=== PATIENT | male | born 1945 | race African-American/Black ===

== ENCOUNTER 2017-10-10 05:35 | Inpatient (IN) | payer OTHER, MEDICARE ==
[2017-10-10] VITALS (34 sets, daily range): BP systolic 140–208; BP diastolic 66–123; PULSE 72–106; RESP 14–31; TEMP 97.3–99.1; O2SAT 91–100
[~2017-10-10] VITALS: Ht 175.3 cm; Wt 89.9 kg
[~2017-10-10 05:35] MED LIST: ASPI-183 PO; FURO1TAB60 PO; LEVA500T PO; LIPI80TA PO; METO50TA PO; PENT400T PO; RANI150C PO; TYLE325T PO; [UNRECOGNIZED DRUG - CODE] SQ
[2017-10-10] MEDS ORDERED: methylPREDNISolone SOD SUCC 125 MG/2 ML VIAL IV PUSH ONE (05:45)
[2017-10-10] MEDS ORDERED: SODIUM CHLORIDE 0.9% FLUSH 10 ML FLUSH IVF PRN (05:45)
[2017-10-10] MEDS ORDERED: NITROGLYCERIN-D5W 50 MG/250 ML 250 ML IV ONE (05:45)
[2017-10-10] MEDS: RESP: ALBUTEROL 2.5 MG/IPRATROPIUM 0.5 MG NEB (SCH) INH ×2 (05:55→05:56)
--- NOTE | 2017-10-10 05:58 | PD ---
HPI Chief Complaint: Respiratory Distress Time Seen by Provider: 05:39 Travel History International Travel<30 days: No Contact w/Intl Traveler<30days: No History of Present Illness HPI This is a 71-year-old male who has a history of congestive heart failure and cigarette smoking who presents to the emergency Department with trouble breathing that started yesterday morning and has worsened throughout the past 2 days, constant, severe. He provides limited history because of his respiratory distress. He denies any chest pain. PFSH Past Medical History Hx Anticoagulant Therapy: Yes (ASA) Arthritis: Yes (RHEUMATOID ARTHRITIS: RIGHT SIDE, RIGHT HAND) Asthma: No Autoimmune Disease: No Blood Disorders: No Anxiety: Yes Depression: Yes Heart Rhythm Problems: No Cancer: No Cardiac Catheterization: Yes (MULTIPLE CATHS WITH 8 STENTS) Cardiovascular Problems: Yes (HTN) High Cholesterol: Yes Chemotherapy: No Chest Pain: Yes Congestive Heart Failure: Yes COPD: No Coronary Artery Disease: Yes Diabetes: Yes Diminished Hearing: No Endocrine: Yes (DIABETES) Gastrointestinal Disorders: Yes GERD: Yes Genitourinary: Yes Hiatal Hernia: No Hypertension: Yes Immune Disorder: No Kidney Stones: No Musculoskeletal: Yes Neurologic: Yes Psychiatric: No Reproductive: No Migraines: No Myocardial Infarction: Yes Radiation Therapy: No Renal Failure: No Seizures: No Sleep Apnea: No Thyroid Disease: No Ulcer: No PNEUMOCCOCAL Vaccine (Year): 2010 Past Surgical History Abdominal Surgery: No AICD: No Arteriovenous Shunt: No Cardiac Surgery: Yes (STENT, BYPASS 1999) Coronary Artery Bypass Graft: Yes (triple bypass) Coronary Stent: Yes (X8) Ear Surgery: No Endocrine Surgery: No Eye Surgery: No Genitourinary Surgery: No Gynecologic Surgery: No Insulin Pump: No Joint Replacement: No Oral Surgery: No Pacemaker: No Thoracic Surgery: No Other Surgery: Yes (STENTS, BYPASS, 2006 L BKA) Social History Alcohol Use: No Tobacco Use: Yes (1 1/2 PACKS PER 2 DAYS) Substance Use: No Allergies-Medications (Allergen,Severity, Reaction): Coded Allergies: penicillin G (Unverified Allergy, Mild, ITCHING, 10/10/17) acetaminophen (Unverified Adverse Reaction, Severe, "MAKES ME GO CRAZY", 10/10/17) fluoxetine (Unverified Adverse Reaction, Severe, "MAKES ME GO CRAZY", ) hydrocodone (Unverified Adverse Reaction, Severe, "MAKES ME GO CRAZY", ) Reported Meds & Prescriptions Reported Meds & Active Scripts Active Reported Novolog Mix 70-30 Inj (Insulin Aspart Prota 70%/Aspart 30%) 1,000 Unit/10 Ml Vial 80 Units SQ AC DINNER Novolog Mix 70-30 Inj (Insulin Aspart Prota 70%/Aspart 30%) 1,000 Unit/10 Ml Vial 50 Units SQ NOON Novolog Mix 70-30 Inj (Insulin Aspart Prota 70%/Aspart 30%) 1,000 Unit/10 Ml Vial 80 Units SQ AC BREAKFAST Hydralazine HCl 25 Mg Tablet 25 Mg PO TID Carvedilol 25 Mg Tab 25 Mg PO BID Pentoxifylline ER (Pentoxifylline) 400 Mg Tab 400 Mg PO TID Tylenol (Acetaminophen) 325 Mg Tab 650 Mg PO Q6H PRN Lipitor (Atorvastatin Calcium) 80 Mg Tab 80 Mg PO HS Aspirin 325 Mg Tab 325 Mg PO DAILY Lasix (Furosemide) 40 Mg Tab 40 Mg PO BID Ranitidine (Ranitidine HCl) 150 Mg Cap 150 Mg PO BID Review of Systems ROS Limitations: Clinical Condition Physical Exam Narrative GENERAL: Moderate respiratory distress SKIN: Focused skin assessment warm and dry. HEAD: Atraumatic. Normocephalic. EYES: Pupils equal and round. No injection or drainage. ENT: Moist mucous membranes NECK: Trachea midline. CARDIOVASCULAR: Tachycardic. No murmur appreciated. No edema. RESPIRATORY: Diffuse wheezing in the upper [place], poor air movement, apnea and accessory muscle use, speaking 1-2 word sentences GASTROINTESTINAL: Abdomen soft, non-tender, nondistended. MUSCULOSKELETAL: Left lower leg prosthesis. NEUROLOGICAL: Awake and alert. No obvious cranial nerve deficits. Moving all extremities. PSYCHIATRIC: Appropriate mood and affect; insight and judgment normal. Data Data Last Documented VS Vital Signs Date Time Temp Pulse Resp B/P (MAP) Pulse Ox O2 Delivery O2 Flow Rate FiO2 10/10/17 06:44 97.3 82 18 146/93 (110) 99 BiPAP 30 Orders Orders Complete Blood Count With Diff (10/10/17 05:40) Comprehensive Metabolic Panel (10/10/17 05:40) B-Type Natriuretic Peptide (10/10/17 05:40) Troponin I (10/10/17 05:40) Iv Access Insert/Monitor (10/10/17 05:40) Ecg Monitoring (10/10/17 05:40) Oximetry (10/10/17 05:40) Oxygen Administration (10/10/17 05:40) Chest, Single Ap (10/10/17 05:40) Sodium Chloride 0.9% Flush (Ns Flush) (10/10/17 05:45) Prothrombin Time / Inr (Pt) (10/10/17 05:40) Act Partial Throm Time (Ptt) (10/10/17 05:40) Nitroglycerin-D5w 50 Mg/250 Ml (Nitrogly (10/10/17 05:45) Methylprednisolone So Succ Inj (Solumedr (10/10/17 05:45) Albuterol-Ipratropium Neb (Duoneb Neb) (10/10/17 05:45) Aspirin Chew (Aspirin Chew) (10/10/17 06:00) Resp Bipap / Cpap Non Invas Vt (10/10/17 ) Furosemide Inj (Lasix Inj) (10/10/17 07:00) Arterial Blood Gas (Abg) (10/10/17 ) Labs Laboratory Tests Test 10/10/17 05:55 White Blood Count 7.0 TH/MM3 Red Blood Count 4.89 MIL/MM3 Hemoglobin 14.0 GM/DL Hematocrit 44.1 % Mean Corpuscular Volume 90.2 FL Mean Corpuscular Hemoglobin 28.6 PG Mean Corpuscular Hemoglobin Concent 31.7 % Red Cell Distribution Width 14.5 % Platelet Count 105 TH/MM3 Mean Platelet Volume 9.4 FL Neutrophils (%) (Auto) 62.1 % Lymphocytes (%) (Auto) 27.7 % Monocytes (%) (Auto) 8.0 % Eosinophils (%) (Auto) 1.5 % Basophils (%) (Auto) 0.7 % Neutrophils # (Auto) 4.3 TH/MM3 Lymphocytes # (Auto) 2.0 TH/MM3 Monocytes # (Auto) 0.6 TH/MM3 Eosinophils # (Auto) 0.1 TH/MM3 Basophils # (Auto) 0.0 TH/MM3 CBC Comment DIFF FINAL Differential Comment Prothrombin Time 12.0 SEC Prothromb Time International Ratio 1.2 RATIO Activated Partial Thromboplast Time 24.3 SEC Blood Urea Nitrogen 23 MG/DL Creatinine 1.80 MG/DL Random Glucose 216 MG/DL Total Protein 7.8 GM/DL Albumin 3.7 GM/DL Calcium Level 9.0 MG/DL Alkaline Phosphatase 108 U/L Aspartate Amino Transf (AST/SGOT) 28 U/L Alanine Aminotransferase (ALT/SGPT) 35 U/L Total Bilirubin 0.8 MG/DL Sodium Level 141 MEQ/L Potassium Level 4.2 MEQ/L Chloride Level 105 MEQ/L Carbon Dioxide Level 31.8 MEQ/L Anion Gap 4 MEQ/L Estimat Glomerular Filtration Rate 45 ML/MIN Troponin I 0.04 NG/ML [facility] Medical Decision Making Medical Screen Exam Complete: Yes Emergency Medical Condition: Yes Medical Record Reviewed: Yes (patient has a history of congestive heart failure and COPD) Interpretation(s) Afebrile, no tachycardia, hypertensive No leukocytosis Renal insufficiency similar to prior Troponin is 0.04 Chest x-ray: Mild congestive heart failure Differential Diagnosis Congestive heart failure, hypertensive emergency, COPD exacerbation, pneumonia, pulmonary embolism Narrative Course This is a 71-year-old male who presents to the emergency department with shortness of breath that started yesterday but has acutely worsened overnight. He has a history congestive heart failure and COPD per his . On arrival he was speaking 1-2 word sentences, diaphoretic, using accessory muscles and had an oxygen saturation of 88% on room air. Patient was placed on BiPAP and a nitroglycerin infusion was initiated in the setting of marked hypertension. He was also given IV steroids and serial bronchodilators. Patient improved significantly and became more comfortable. Labs are reassuring. Chest x-ray demonstrates congestive heart failure. Patient will be admitted in the setting of hypertensive emergency and CHF exacerbation Critical Care Narrative Aggregate critical care time was 45 minutes. Time to perform other separately billable procedures was not included in the critical care time. My time did not include minutes spent treating any other patients simultaneously or on activities that did not directly contribute to the patient's treatment. The services I provided to this patient were to treat and/or prevent clinically significant deterioration that could result in: disability, I provided critical care services requiring my management, as noted below: Chart data review, documentation time, medication orders and management, vital sign assessments/reviewing monitor data, ordering and reviewing lab tests, ordering and interpreting/reviewing x-rays and diagnostic studies, care of the patient and discussion of the patient with the admitting physicians. Diagnosis Primary Impression: Hypertensive emergency Additional Impression: Congestive heart failure Qualified Codes: I50.9 - Heart failure, unspecified Admitting Information Admitting Physician Requests: it Darline Nicole MD Oct 10, 2017 05:58
[2017-10-10] MEDS ORDERED: ASPIRIN 81 MG CHEW TAB CHEW ONE (06:00)
[2017-10-10 06:15] LABS: AUTOMATED NEUTROPHIL # 4.3 TH/MM3 (1.8-7.7); BASOPHIL % 0.7 % (0.0-2.0); EOSINOPHIL # 0.1 TH/MM3 (0-0.4); EOSINOPHIL % 1.5 % (0.0-4.0); HEMATOCRIT 44.1 % (39.0-51.0); LYMPH % 27.7 % (9.0-44.0); MEAN CELL VOLUME 90.2 FL (80.0-100.0); MEAN CORPUSCULAR HEMOGLOBIN 28.6 PG (27.0-34.0); MEAN CORPUSCULAR HGB CONC 31.7 % (32.0-36.0); MEAN PLATELET VOLUME 9.4 FL (7.0-11.0); MONOCYTE # 0.6 TH/MM3 (0-0.9); NEUT % 62.1 % (16.0-70.0); PLATELET COUNT 105 TH/MM3 (150-450); RED BLOOD COUNT 4.89 MIL/MM3 (4.50-5.90); RED CELL DISTRIBUTION WIDTH 14.5 % (11.6-17.2)
[2017-10-10 06:29] LABS: CHLORIDE 105 MEQ/L (98-107); SODIUM (NA) 141 MEQ/L (136-145)
[2017-10-10 06:32] LABS: ALBUMIN 3.7 GM/DL (3.4-5.0); BICARBONATE 31.8 MEQ/L (21.0-32.0); BLOOD UREA NITROGEN 23 MG/DL (7-18); GLUCOSE,RANDOM 216 MG/DL (74-106); INTERNATIONAL NORMALIZED RATIO 1.2 RATIO
[2017-10-10] MEDS ORDERED: HYDR-3799 PO (06:33)
[2017-10-10] MEDS ORDERED: CARV25TA PO (06:33)
[2017-10-10 06:35] LABS: ALT (GPT) 35 U/L (12-78)
[2017-10-10 06:36] LABS: AST (GOT) 28 U/L (15-37); GLOMERULAR FILTRATION RATE 45 ML/MIN (>89)
[2017-10-10 06:37] LABS: TOTAL BILIRUBIN ADULT 0.8 MG/DL (0.2-1.0); TOTAL PROTEIN 7.8 GM/DL (6.4-8.2)
[2017-10-10 06:38] LABS: ALKALINE PHOSPHATASE 108 U/L (45-117)
[2017-10-10] MEDS ORDERED: NOVOLOGMXP SQ ×4 (06:38)
[2017-10-10 06:40] LABS: TROPONIN I 0.04 NG/ML (0.02-0.05)
--- NOTE | 2017-10-10 06:48 | RADRPT ---
EXAM DATE/TIME: 10/10/2017 06:29 [place] COMPARISON: CHEST SINGLE AP, August 29, 2016, 15:14. INDICATIONS : Shortness of breath. MEDICAL HISTORY : Hypertension. Hypercholesterolemia. Diabetes mellitus type II. COPD. Congestive Heart Failure. Gastro esophageal reflux disease. SURGICAL HISTORY : CABG. Cardiac catheterization with stent placement. ENCOUNTER: Initial ACUITY: 1 day PAIN SCORE: 4/10 LOCATION: Bilateral chest FINDINGS: There is slight cardiomegaly and perivascular pulmonary edema. Focal consolidation is not seen. There is evidence for prior median sternotomy. left subclavian pacer wire has not changed. CONCLUSION: Slight CHF. Ziggy Kaye MD on October 10, 2017 at 6:47 Board Certified Radiologist. This report was verified electronically.
[2017-10-10] MEDS ORDERED: FUROSEMIDE 40 MG/4 ML VIAL IV PUSH ONE (07:00)
[2017-10-10] MEDS ORDERED: GLUCAGON 1 MG/ML VIAL OTHER PRN (08:15)
[2017-10-10] MEDS ORDERED: SENNOSIDES 8.6 MG TAB PO PRN (08:15)
[2017-10-10] MEDS ORDERED: DEXTROSE 50% IN WATER 50 ML VIAL(D50) IV PUSH PRN (08:15)
[2017-10-10] MEDS ORDERED: NALOXONE HCL 0.4 MG/ML AMP IV PUSH PRN ×2 (08:15→19:30)
[2017-10-10] MEDS ORDERED: ONDANSETRON HCL 4 MG/2 ML VIAL IVP PRN (08:15)
[2017-10-10] MEDS ORDERED: LACTULOSE SYRUP 20 GM/30 ML CUP PO PRN (08:15)
[2017-10-10] MEDS ORDERED: TEMAZEPAM 15 MG CAP PO PRN (08:15)
[2017-10-10] MEDS ORDERED: MAGNESIUM HYDROXIDE SUSP 30 ML CUP PO PRN (08:15)
[2017-10-10] MEDS ORDERED: BISACODYL 10 MG SUPP RECTAL PRN (08:15)
[2017-10-10] MEDS ORDERED: RESP: ALBUTEROL 2.5 MG/IPRATROPIUM 0.5 MG NEB (PRN) NEB (08:15)
[2017-10-10] MEDS ORDERED: SODIUM CHLORIDE 0.9% FLUSH 10 ML FLUSH IV FLUSH PRN (08:15)
[2017-10-10] MEDS ORDERED: ACETAMINOPHEN 325 MG TAB PO PRN (08:15)
[2017-10-10] MEDS ORDERED: CARVEDILOL 12.5 MG TAB PO SCH (09:00)
[2017-10-10] MEDS: ASPIRIN 325 MG TAB PO SCH (10:42)
[2017-10-10] MEDS: DOCUSATE SODIUM 50 MG/SENNA 8.6 MG TAB PO SCH ×2 (10:42→21:52)
[2017-10-10] MEDS: FUROSEMIDE 40 MG/4 ML VIAL IV PUSH SCH ×2 (10:43→17:12)
[2017-10-10] MEDS: ENOXAPARIN SODIUM 40 MG/0.4 ML SYRINGE SQ SCH (10:43)
[2017-10-10] MEDS: hydrALAZINE HCL 25 MG TAB PO SCH ×3 (10:43→17:13)
[2017-10-10] MEDS: SODIUM CHLORIDE 0.9% FLUSH 10 ML FLUSH IV FLUSH SCH ×2 (10:44→21:41)
[2017-10-10] MEDS: FAMOTIDINE 20 MG TAB PO SCH ×2 (10:49→21:52)
[2017-10-10] MEDS ORDERED: PILL SPLITTER OTHER PRN (11:00)
[2017-10-10] MEDS: PENTOXIFYLLINE 400 MG CONTROLLED RELEASE TAB PO SCH ×3 (11:12→17:12)
[2017-10-10] MEDS: INSULIN ASPART SUPPLEMENTAL SCALE SQ SCH ×3 (12:16→21:51)
[2017-10-10] MEDS ORDERED: SODIUM CHLOR 0.9% 1000 ML INJ 1,000 ML IV ONE (13:15)
--- NOTE | 2017-10-10 14:21 | EKG ---
Date Performed: 10/10/2017 Time Performed: 06:35:21 PTAGE: 71 years EKG: Sinus rhythm WITH OCCASIONAL VENTRICULAR PREMATURE COMPLEXES POSSIBLE LEFT ATRIAL ENLARGEMENT INTRAVENTRICULAR CO NDUCTION DELAY ABNORMAL ECG PREVIOUS TRACING : 08/29/2016 11.22 DOCTOR: Alden Milner Interpretating Date/Time 10/10/2017 14:20:13
--- NOTE | 2017-10-10 14:22 | EKG ---
Date Performed: 10/10/2017 Time Performed: 05:41:56 PTAGE: 71 years EKG: SINUS TACHYCARDIA WITH OCCASIONAL VENTRICULAR PREMATURE COMPLEXES POSSIBLE LEFT ATRIAL ENLA RGEMENT INTRAVENTRICULAR CONDUCTION DELAY ABNORMAL ECG INTERPRETATION BASED ON A DEFAULT AGE OF 40 YE ARS NO PREVIOUS TRACING DOCTOR: Alden Milner Interpretating Date/Time 10/10/2017 14:21:34
--- NOTE | 2017-10-10 14:51 | HHI.HP ---
[facility] Service [facility] Primary Care Physician Christofer Hernandez M.D. Admission Diagnosis CHF exacerbation, COPD exacerbation Diagnoses: Chief Complaint: Shortness of breath Travel History International Travel<30 Days: No Contact w/Intl Traveler <30 Da: No Traveled to Known Affected Are: No History of Present Illness Pleasant 71-year-old male with past medical history of coronary artery disease with CABG, hypertension, hyperlipidemia, diabetes with neuropathy and left BKA, systolic CHF, COPD. Patient came to the emergency room for evaluation of shortness of breath, generalized weakness. Says he has CHF and copd but he is not on O2 supplement, says sob worsened x 2 days, symptoms constant, severe. He provides limited history because of his respiratory distress. He denies any chest pain at this time, however he hasd some chest pain /pressure moderate in severity intermittent in the morning after he feed his cats. Says she feels palpitations in his chest but no lighheadedness or sob. No n/v/d/c. Says last drink was yesterday he drinks 2 small bottles of whiskey 2 or 3 times a week. Review of Systems Except as stated in HPI: all other systems reviewed are Neg Past Family Social History Past Medical History Hypertension, hyperlipidemia, diabetes mellitus, left BKA, coronary artery disease with CABG, COPD, CHF Past Surgical History CABG 2000 Defibrillator 2017 Left TKA Bilateral laser eye surgery Reported Medications Last Impressions Chest X-Ray 10/10/17 0590 Signed Impressions: Service Date/Time: Sunday, October 10, 2017 06:29 - CONCLUSION: Slight CHF. K. Rodney Kaye MD Allergies: Coded Allergies: penicillin G (Unverified Allergy, Mild, ITCHING, 10/10/17) acetaminophen (Unverified Adverse Reaction, Severe, "MAKES ME GO CRAZY", 10/10/17) fluoxetine (Unverified Adverse Reaction, Severe, "MAKES ME GO CRAZY", ) hydrocodone (Unverified Adverse Reaction, Severe, "MAKES ME GO CRAZY", 12/ 27/17) Family History Parents and his sister with hypertension, diabetes, hyperlipidemia Social History Quit alcohol use in 1999 Tobacco one pack per day for 60 years, down a month ago 7 cigarettes per day and now 2 cigarettes a day. Denies illicit drug use Physical Exam Vital Signs Vital Signs Date Time Temp Pulse Resp B/P (MAP) Pulse Ox O2 Delivery O2 Flow Rate FiO2 10/10/17 14:00 82 10/10/17 14:00 82 16 141/66 (91) 94 10/10/17 13:30 84 16 144/72 (96) 99 10/10/17 13:00 88 14 140/82 (101) 96 10/10/17 12:30 85 17 143/78 (99) 94 10/10/17 12:00 88 10/10/17 12:00 88 27 163/86 (111) 98 10/10/17 11:38 99 Nasal Cannula 2.00 10/10/17 11:17 84 20 163/80 (107) 96 10/10/17 11:00 102 31 188/88 (121) 10/10/17 11:00 102 10/10/17 10:30 86 20 155/78 (103) 95 10/10/17 10:00 84 10/10/17 10:00 84 22 167/89 (115) 96 10/10/17 09:49 82 167/87 10/10/17 09:00 84 10/10/17 09:00 99.1 84 14 150/83 (105) 10/10/17 08:51 10/10/17 08:29 78 18 156/82 (106) 98 Nasal Cannula 2.00 10/10/17 08:01 98 Nasal Cannula 2.00 10/10/17 07:59 75 18 158/81 (106) 99 Nasal Cannula 2.00 10/10/17 07:44 72 17 164/83 (110) 97 Nasal Cannula 2.00 10/10/17 07:29 76 16 162/81 (108) Nasal Cannula 10/10/17 07:17 98 Nasal Cannula 2.00 10/10/17 07:14 80 16 162/91 (114) 99 Nasal Cannula 2.00 10/10/17 07:11 99 Nasal Cannula 2.00 10/10/17 07:11 BiPAP 10/10/17 06:59 91 16 171/92 (118) 98 BiPAP 30 10/10/17 06:56 100 BiPAP 30 10/10/17 06:44 97.3 82 18 146/93 (110) 99 BiPAP 30 10/10/17 06:35 88 18 170/90 (116) 99 BiPAP 30 10/10/17 06:25 90 160/88 (112) 97 BiPAP 10/10/17 06:18 92 18 157/109 (125) 98 BiPAP 30 10/10/17 06:09 90 18 187/101 (129) 99 BiPAP 30 10/10/17 06:05 87 208/123 10/10/17 05:52 BiPAP 10/10/17 05:45 99 30 10/10/17 05:40 106 24 208/123 (151) 97 10/10/17 05:40 90 Room Air Physical Exam GENERAL: This is a well-nourished, well-developed patient, in no apparent distress. SKIN: No rashes, ecchymoses or lesions. Cool and dry. HEAD: Atraumatic. Normocephalic. No temporal or scalp tenderness. EYES: Pupils equal round and reactive. Extraocular motions intact. No scleral icterus. No injection or drainage. ENT: Nose without bleeding, purulent drainage or septal hematoma. Throat without erythema, tonsillar hypertrophy or exudate. Uvula midline. Airway patent. NECK: Trachea midline. No JVD or lymphadenopathy. Supple, nontender, no meningeal signs. CARDIOVASCULAR: Regular rate and rhythm without murmurs, gallops, or rubs. RESPIRATORY: Decreased breath sounds, bibasilar bibasilar crackles, no wheezing. No respiratory accessory muscle use. GASTROINTESTINAL: Abdomen soft, non-tender, nondistended. No hepato-splenomegaly , or palpable masses. No guarding. MUSCULOSKELETAL: Left BKA Extremities without clubbing, cyanosis, or edema. No joint tenderness, effusion, or edema noted. No calf tenderness. Negative Homans sign right side. NEUROLOGICAL: Awake and alert. Cranial nerves II through XII intact. Motor and sensory grossly within normal limits. Five out of 5 muscle strength in all muscle groups. Normal speech. Laboratory Laboratory Tests Test 10/10/17 05:55 10/10/17 07:07 White Blood Count 7.0 Red Blood Count 4.89 Hemoglobin 14.0 Hematocrit 44.1 Mean Corpuscular Volume 90.2 Mean Corpuscular Hemoglobin 28.6 Mean Corpuscular Hemoglobin Concent 31.7 Red Cell Distribution Width 14.5 Platelet Count 105 Mean Platelet Volume 9.4 Neutrophils (%) (Auto) 62.1 Lymphocytes (%) (Auto) 27.7 Monocytes (%) (Auto) 8.0 Eosinophils (%) (Auto) 1.5 Basophils (%) (Auto) 0.7 Neutrophils # (Auto) 4.3 Lymphocytes # (Auto) 2.0 Monocytes # (Auto) 0.6 Eosinophils # (Auto) 0.1 Basophils # (Auto) 0.0 CBC Comment DIFF FINAL Differential Comment Prothrombin Time 12.0 Prothromb Time International Ratio 1.2 Activated Partial Thromboplast Time 24.3 Blood Urea Nitrogen 23 Creatinine 1.80 Random Glucose 216 Total Protein 7.8 Albumin 3.7 Calcium Level 9.0 Alkaline Phosphatase 108 Aspartate Amino Transf (AST/SGOT) 28 Alanine Aminotransferase (ALT/SGPT) 35 Total Bilirubin 0.8 Sodium Level 141 Potassium Level 4.2 Chloride Level 105 Carbon Dioxide Level 31.8 Anion Gap 4 Estimat Glomerular Filtration Rate 45 Troponin I 0.04 B-Type Natriuretic Peptide 564 Blood Gas Puncture Site RT RADIAL Blood Gas Patient Temperature 98.6 Blood Gas HCO3 27 Blood Gas Base Excess 2.3 Blood Gas Oxygen Saturation 95 Arterial Blood pH 7.40 Arterial Blood Partial Pressure CO2 44 Arterial Blood Partial Pressure O2 101 Arterial Blood Oxygen Content 17.5 Arterial Blood Carboxyhemoglobin 2.8 Arterial Blood Methemoglobin 0.9 Blood Gas Hemoglobin 13.1 Oxygen Delivery Device BIPAP Blood Gas Ventilator Setting IPAP 12/EPAP 5 Blood Gas Inspired Oxygen 30 Result Diagram: 10/10/1755410/10/1755 Imaging Last Impressions Chest X-Ray 10/10/17539 Signed Impressions: Service Date/Time: Tuesday, October 10, 2017 06:29 - CONCLUSION: Slight CHF. K. MD Hernán Ellis VTE Risk Assessment Caprini VTE Risk Assessment: Mod/High Risk (score >= 2) Caprini Risk Assessment Model Point Value = 1 Point Value = 2 Point Value = 3 Point Value = 5 Age 41-60 Minor surgery BMI > 25 kg/m2 Swollen legs Varicose veins or History of unexplained or recurrent spontaneous Oral contraceptives or hormone replacement Sepsis (< 1 month) Serious lung disease, including pneumonia (< 1 month) Abnormal pulmonary function Acute myocardial infarction Congestive heart failure (< 1 month) History of inflammatory bowel disease Medical patient at bed rest Age 61-74 Arthroscopic surgery Major open surgery (> 45 min) Laparoscopic surgery (> 45 min) Malignancy Confined to bed (> 72 hours) Immobilizing plaster cast Central venous access Age >= 75 History of VTE Family history of VTE Factor V Leiden Prothrombin [id number] Lupus anticoagulant Anticardiolipin antibodies Elevated serum homocysteine Heparin-induced thrombocytopenia Other congenital or acquired thrombophilia Stroke (< 1 month) Elective arthroplasty Hip, pelvis, or leg fracture Acute spinal cord injury (< 1 month) Prophylaxis Regimen Total Risk Factor Score Risk Level Prophylaxis Regimen 0-1 Low Early ambulation 2 Moderate Order ONE of the following: *Sequential Compression Device (SCD) *Heparin 5000 units SQ BID 3-4 Higher Order ONE of the following medications: *Heparin 5000 units SQ TID *Enoxaparin/Lovenox 40 mg SQ daily (WT < 150 kg, CrCl > 30 mL/min) *Enoxaparin/Lovenox 30 mg SQ daily (WT < 150 kg, CrCl > 10-29 mL/min) *Enoxaparin/Lovenox 30 mg SQ BID (WT < 150 kg, CrCl > 30 mL/min) AND/OR *Sequential Compression Device (SCD) 5 or more Highest Order ONE of the following medications: *Heparin 5000 units SQ TID (Preferred with Epidurals) *Enoxaparin/Lovenox 40 mg SQ daily (WT < 150 kg, CrCl > 30 mL/min) *Enoxaparin/Lovenox 30 mg SQ daily (WT < 150 kg, CrCl > 10-29 mL/min) *Enoxaparin/Lovenox 30 mg SQ BID (WT < 150 kg, CrCl > 30 mL/min) AND *Sequential Compression Device (SCD) Assessment and Plan Assessment and Plan Pleasant 71-year-old male with past medical history of systolic CHF, coronary artery disease with CABG, hypertension, hyperlipidemia, diabetes with neuropathy and left BKA, COPD with c/o sob: Acute exacerbation of systolic CHF Hypertensive emergency History of coronary artery disease with CABG Start Lasix 40 mg IV twice a day Placed on nitro drip monitor blood pressure and taper as tolerated Continue home medications Chronic medical problems appear stable at this time resume home medications DVT prophylaxis SCD teds, Lovenox Discussed Condition With Patient, nurse, ED physician Physician Certification 2 Midnight Certification Type: Admission for Inpatient Services Order for Inpatient Services The services are ordered in accordance with Medicare regulations or non- Medicare payer requirements, as applicable. In the case of services not specified as inpatient-only, they are appropriately provided as inpatient services in accordance with the 2-midnight benchmark. Estimated LOS (days): 3 days is the estimated time the patient will need to remain in the hospital, assuming treatment plan goals are met and no additional complications. Post-Hospital Plan: Home Mariza Cheung MD Oct 10, 2017 14:51
[2017-10-10] MEDS ORDERED: CHLORHEXIDINE GLUCONATE 2 % 1 PACK (2 CLOTHS)(extra cloths) TOPICAL PRN (15:30)
[2017-10-10] MEDS ORDERED: hydrALAZINE HCL 10 MG TAB PO PRN (18:00)
[2017-10-10] MEDS ORDERED: hydrALAZINE HCL 25 MG TAB PO ONE (18:00)
[2017-10-10] MEDS ORDERED: FUROSEMIDE 40 MG/4 ML VIAL IV PUSH SCH (18:00)
[2017-10-10] MEDS ORDERED: hydrALAZINE HCL 25 MG TAB PO SCH (18:00)
[2017-10-10] MEDS ORDERED: CARVEDILOL 6.25 MG TAB PO ONE (18:00)
[2017-10-10] MEDS ORDERED: ENALAPRILAT 2.5 MG/2 ML VIAL IV PUSH PRN (18:00)
[2017-10-10] MEDS ORDERED: ATORVASTATIN 40 MG TAB PO SCH (21:00)
[2017-10-10] MEDS: CARVEDILOL 12.5 MG TAB PO SCH (21:53)
[2017-10-11] VITALS: BP 165/72; PULSE 79; RESP 16; TEMP 98.5; O2SAT 95
[2017-10-11 04:00] VITALS: BP 142/71; PULSE 75; RESP 16; TEMP 98.6; O2SAT 96
[2017-10-11] MEDS ORDERED: CHLORHEXIDINE GLUCONATE 2 % 1 PACK (2 CLOTHS)(taper/protocol) TOPICAL SCH (04:00)
[2017-10-11 05:37] LABS: AUTOMATED NEUTROPHIL # 10.5 TH/MM3 (1.8-7.7); BASOPHIL # 0.1 TH/MM3 (0-0.2); BASOPHIL % 0.4 % (0.0-2.0); EOSINOPHIL % 0.1 % (0.0-4.0); HEMATOCRIT 39.9 % (39.0-51.0); HEMOGLOBIN 12.9 GM/DL (13.0-17.0); LYMPH % 9.6 % (9.0-44.0); LYMPHOCYTE # 1.2 TH/MM3 (1.0-4.8); MEAN CELL VOLUME 88.8 FL (80.0-100.0); MEAN CORPUSCULAR HEMOGLOBIN 28.8 PG (27.0-34.0); MEAN CORPUSCULAR HGB CONC 32.5 % (32.0-36.0); MEAN PLATELET VOLUME 9.5 FL (7.0-11.0); MONO % 5.7 % (0.0-8.0); MONOCYTE # 0.7 TH/MM3 (0-0.9); NEUT % 84.2 % (16.0-70.0); PLATELET COUNT 96 TH/MM3 (150-450); RED CELL DISTRIBUTION WIDTH 13.9 % (11.6-17.2); WHITE BLOOD COUNT 12.5 TH/MM3 (4.0-11.0)
[2017-10-11 05:56] LABS: CALCIUM 8.8 MG/DL (8.5-10.1)
[2017-10-11 08:00] VITALS: BP 150/80; PULSE 60; RESP 20; TEMP 97.5; O2SAT 97
[2017-10-11] MEDS: ASPIRIN 325 MG TAB PO SCH (08:39)
[2017-10-11] MEDS: ENOXAPARIN SODIUM 40 MG/0.4 ML SYRINGE SQ SCH (08:39)
[2017-10-11] MEDS: CARVEDILOL 12.5 MG TAB PO SCH (08:40)
[2017-10-11] MEDS: FAMOTIDINE 20 MG TAB PO SCH (08:40)
[2017-10-11] MEDS: DOCUSATE SODIUM 50 MG/SENNA 8.6 MG TAB PO SCH (08:40)
[2017-10-11] MEDS: PENTOXIFYLLINE 400 MG CONTROLLED RELEASE TAB PO SCH (08:40)
[2017-10-11] MEDS: SODIUM CHLORIDE 0.9% FLUSH 10 ML FLUSH IV FLUSH SCH (08:41)
--- NOTE | 2017-10-11 08:44 | HHI.DCPOC ---
Discharge Care Plan Goals to Promote Your Health * To prevent worsening of your condition and complications * To maintain your health at the optimal level Directions to Meet Your Goals Take your medications as prescribed Follow your dietary instruction Follow activity as directed Keep your appointments as scheduled Take your immunizations and boosters as scheduled If your symptoms worsen call your PCP, if no PCP go to Urgent Care Center or Emergency Room Smoking is Dangerous to Your Health. Avoid second hand smoke Call the 24-hour hour crisis hotline for domestic abuse at Mariza Cheung MD Oct 11, 2017 08:44
[2017-10-11] MEDS: INSULIN ASPART SUPPLEMENTAL SCALE SQ SCH (08:57)
[2017-10-11] MEDS ORDERED: hydrALAZINE HCL 25 MG TAB PO SCH (09:00)
[2017-10-11] MEDS ORDERED: FUROSEMIDE 40 MG TAB PO SCH (09:00)
--- NOTE | 2017-10-11 12:25 | HHI.FF ---
Face to Face Verification Diagnosis: (1) Acute pancreatitis (2) CHF (congestive heart failure) (3) Non-ischemic cardiomyopathy Home Health Nursing Order: Medical education Signs/symptoms of disease process CHF education Medication education-adverse effect Nursing assessment with vital signs I have seen patient Tawnya Valdes on 10/11/17. My clinical findings support the need for the requested home health care services because: Patient has SOB Med compliance is questionable I certify that my clinical findings support that this patient is homebound because: Hx COPD- exertion dyspnea/weakness Rachael Larsen Oct 11, 2017 12:25
== END 2017-10-11 10:55 | disposition home health service (06) | DRG 304 ==
LOC: PHED 05:35 → INTOOBSV 08:04 → PHEDA 08:04 → OBSVTOIN 08:13 → PHICU 09:00 → PH3B 18:55
PROVIDERS: ADMIT Hospitalist; ATTEND Hospitalist
PROC: 5A09357 Assistance with Respiratory Ventilation, Less than 24 Consecutive Hours, Continuous Positive Airway Pressure (ICD-10-PCS; principal; 2017-10-10)
DX: I16.1 Hypertensive emergency (principal); I11.0 Hypertensive heart disease with heart failure; I50.23 Acute on chronic systolic (congestive) heart failure; E11.40 Type 2 diabetes mellitus with diabetic neuropathy, unspecified; Z79.4 Long term (current) use of insulin; J44.9 Chronic obstructive pulmonary disease, unspecified; I25.10 Atherosclerotic heart disease of native coronary artery without angina pectoris; Z95.1 Presence of aortocoronary bypass graft; I25.2 Old myocardial infarction; E78.5 Hyperlipidemia, unspecified; Z89.512 Acquired absence of left leg below knee; M06.9 Rheumatoid arthritis, unspecified; K21.9 Gastro-esophageal reflux disease without esophagitis; F17.210 Nicotine dependence, cigarettes, uncomplicated; Z79.82 Long term (current) use of aspirin
CPT/HCPCS: 36600; 71010; 80048; 80053; 82805; 82948; 83880; 84484; 85025; 85610; 85730; 87641; 93005; 94002; 94640; 94664; 96365; 96366; 96375; J1650; J1815; J1940; J2930

== ENCOUNTER 2018-02-04 04:28 | Inpatient (IN) | payer OTHER, MEDICARE ==
[2018-02-04] VITALS (29 sets, daily range): BP systolic 156–204; BP diastolic 72–101; PULSE 80–110; RESP 14–38; TEMP 98.2–98.8; O2SAT 82–100
[~2018-02-04] VITALS: Ht 175.3 cm; Wt 91.6 kg
[~2018-02-04 04:28] MED LIST changes: +CARV25TA PO; +HYDR-3799 PO; -LEVA500T PO; -METO50TA PO; +NOVOLOGMXP SQ; -[UNRECOGNIZED DRUG - CODE] SQ
--- NOTE | 2018-02-04 04:39 | PD ---
HPI Chief Complaint: Short of breath Time Seen by Provider: 04:31 Travel History International Travel<30 days: No Contact w/Intl Traveler<30days: No Traveled to known affect area: No History of Present Illness HPI 72-year-old male presents to the emergency department by private transportation from home after waking from sleep with marked shortness of breath. Patient presents markedly diaphoretic and acute severe respiratory distress answering with simple single word answers due to marked shortness of breath. Patient has had previous CABG and reports history of COPD. PFSH Past Medical History Narrative Medical CAD CABG AICD CHF COPD hypertension dyslipidemia diabetes; nursing notes reviewed Hx Anticoagulant Therapy: Yes (ASPIRIN) Arthritis: Yes (RHEUMATOID ARTHRITIS: RIGHT SIDE, RIGHT HAND) Asthma: No Autoimmune Disease: No Blood Disorders: No Anxiety: Yes Depression: No Heart Rhythm Problems: No Cancer: No Cardiac Catheterization: Yes (MULTIPLE CATHS WITH 8 STENTS) Cardiovascular Problems: Yes (HTN, ME,TRIPLE BYPASS, AICD) High Cholesterol: Yes Chemotherapy: No Chest Pain: Yes Congestive Heart Failure: Yes COPD: Yes Coronary Artery Disease: Yes Diabetes: Yes Diminished Hearing: No Endocrine: Yes (DIABETES) Gastrointestinal Disorders: Yes GERD: Yes Genitourinary: No Hiatal Hernia: No Hypertension: Yes Immune Disorder: No Kidney Stones: No Musculoskeletal: Yes (BTK AMPUTATION 2006) Neurologic: No Psychiatric: No Reproductive: No Respiratory: Yes (COPD, EMPHYSEMA) Migraines: No Myocardial Infarction: Yes Radiation Therapy: No Renal Failure: No Seizures: No Sickle Cell Disease: No Sleep Apnea: No Thyroid Disease: No Ulcer: No PNEUMOCCOCAL Vaccine (Year): 2010 Past Surgical History Abdominal Surgery: No AICD: Yes (2015) Arteriovenous Shunt: No Cardiac Surgery: Yes (STENT, BYPASS 1999) Coronary Artery Bypass Graft: Yes (triple bypass) Coronary Stent: Yes (X8) Ear Surgery: No Endocrine Surgery: No Eye Surgery: Yes (LASER, LASIK, BILATERAL) Genitourinary Surgery: No Gynecologic Surgery: No Insulin Pump: No Joint Replacement: No Oral Surgery: No Pacemaker: No Thoracic Surgery: No Other Surgery: Yes (STENTS, BYPASS, 2007 L BKA) Social History Alcohol Use: No Tobacco Use: Yes (1 1/2 PACKS PER 2 DAYS) Substance Use: No Allergies-Medications (Allergen,Severity, Reaction): Coded Allergies: penicillin G (Unverified Allergy, Mild, ITCHING, 10/10/17) acetaminophen (Unverified Adverse Reaction, Severe, "MAKES ME GO CRAZY", 10/10/17) fluoxetine (Unverified Adverse Reaction, Severe, "MAKES ME GO CRAZY", ) hydrocodone (Unverified Adverse Reaction, Severe, "MAKES ME GO CRAZY", ) Reported Meds & Prescriptions Reported Meds & Active Scripts Active Reported Novolog Mix 70-30 Inj (Insulin Aspart Prota 70%/Aspart 30%) 1,000 Unit/10 Ml Vial 80 Units SQ AC DINNER Novolog Mix 70-30 Inj (Insulin Aspart Prota 70%/Aspart 30%) 1,000 Unit/10 Ml Vial 50 Units SQ NOON Novolog Mix 70-30 Inj (Insulin Aspart Prota 70%/Aspart 30%) 1,000 Unit/10 Ml Vial 80 Units SQ AC BREAKFAST Hydralazine HCl 25 Mg Tablet 25 Mg PO TID Carvedilol 25 Mg Tab 25 Mg PO BID Pentoxifylline ER (Pentoxifylline) 400 Mg Tab 400 Mg PO TID Tylenol (Acetaminophen) 325 Mg Tab 650 Mg PO Q6H PRN Lipitor (Atorvastatin Calcium) 80 Mg Tab 80 Mg PO HS Aspirin 325 Mg Tab 325 Mg PO DAILY Lasix (Furosemide) 40 Mg Tab 40 Mg PO BID Ranitidine (Ranitidine HCl) 150 Mg Cap 150 Mg PO BID Review of Systems ROS Limitations: Clinical Condition, Other: (Marked respiratory distress unable to obtain review of systems secondary to respiratory distress) Cardiovascular: No: Chest Pain or Discomfort Respiratory: Positive: Shortness of Breath Physical Exam Narrative GENERAL: Well-developed and nourished adult male in obvious acute respiratory distress markedly diaphoretic tachypneic demonstrating work of breathing with accessory muscle use SKIN: Warm and diaphoretic. HEAD: Normocephalic. EYES: No scleral icterus. No injection or drainage. NECK: Supple, trachea midline. No JVD or lymphadenopathy. CARDIOVASCULAR: Increased regular rate and rhythm without murmurs, gallops, or rubs. RESPIRATORY: Breath sounds equal bilaterally markedly diminished scant crackles at bases and faint expiratory wheezing with accessory muscle use. GASTROINTESTINAL: Abdomen soft, non-tender, nondistended. MUSCULOSKELETAL: No cyanosis, or edema. BACK: Nontender without obvious deformity. No CVA tenderness. Data Data Last Documented VS Vital Signs Date Time Temp Pulse Resp B/P (MAP) Pulse Ox O2 Delivery O2 Flow Rate FiO2 02/04/18 05:48 100 24 188/87 (120) 100 BiPAP 02/04/18 05:10 40 02/04/18 04:43 5.00 Orders Orders Complete Blood Count With Diff (02/04/18 04:31) Basic Metabolic Panel (Bmp) (02/04/18 04:31) B-Type Natriuretic Peptide (02/04/18 04:31) Act Partial Throm Time (Ptt) (02/04/18 04:31) Prothrombin Time / Inr (Pt) (02/04/18 04:31) Magnesium (Mg) (02/04/18 04:31) Ckmb (Isoenzyme) Profile (02/04/18 04:31) Troponin I (02/04/18 04:31) Blood Culture (02/04/18 04:31) Iv Access Insert/Monitor (02/04/18 04:31) Electrocardiogram (02/04/18 04:31) Ecg Monitoring (02/04/18 04:31) Oximetry (02/04/18 04:31) Oxygen Administration (02/04/18 04:31) Chest, Single Ap (02/04/18 04:31) Sodium Chloride 0.9% Flush (Ns Flush) (02/04/18 04:45) Methylprednisolone So Succ Inj (Solumedr (02/04/18 04:45) Albuterol-Ipratropium Neb (Duoneb Neb) (02/04/18 04:45) Resp Bipap / Cpap Non Invas Vt (02/04/18 04:31) Furosemide Inj (Lasix Inj) (02/04/18 04:45) Lactic Acid (02/04/18 04:41) CKMB (02/04/18 04:35) CKMB% (02/04/18 04:35) Place In Observation (02/04/18 ) Vital Signs (Adult) Q4H (02/04/18 05:56) Activity Oob With Assistance (02/04/18 05:56) Ict Sales Representative / Telemetry .CONTINUOUS (02/04/18 05:56) Intake + Output RYAN.QSHIFT (02/04/18 05:56) Diet Heart Healthy (02/04/18 Breakfast) Sodium Chloride 0.9% Flush (Ns Flush) (02/04/18 06:00) Sodium Chloride 0.9% Flush (Ns Flush) (02/04/18 09:00) Comprehensive Metabolic Panel (02/05/18 06:00) Complete Blood Count With Diff (02/05/18 06:00) Naloxone Inj (Narcan Inj) (02/04/18 06:00) Docusate Sodium-Senna (Jenna-Colace) (02/04/18 09:00) Magnesium Hydroxide Liq (Milk Of Magnesi (02/04/18 06:00) Sennosides (Senokot) (02/04/18 06:00) Bisacodyl Supp (Dulcolax Supp) (02/04/18 06:00) Lactulose Liq (Lactulose Liq) (02/04/18 06:00) Intake + Output RYAN.QSHIFT (02/04/18 05:56) ^ Restrictions (02/04/18 05:56) Furosemide Inj (Lasix Inj) (02/04/18 09:00) Albuterol-Ipratropium Neb (Duoneb Neb) (02/04/18 06:00) Nitroglycerin Sl (Nitrostat Sl) (02/04/18 06:00) Creatine Kinase (Cpk) (02/04/18 10:35) Creatine Kinase (Cpk) (02/04/18 16:35) Troponin I (02/04/18 10:35) Troponin I (02/04/18 16:35) Electrocardiogram (02/04/18 10:35) Electrocardiogram (02/04/18 16:35) Admit Order (Ed Use Only) (02/04/18 ) Ict Sales Representative / Telemetry RYAN.Q8H (02/04/18 06:01) Activity Bed Rest (02/04/18 06:01) Notify Dr: Other (02/04/18 06:01) Nitroglycerin 2% Oint (Nitroglycerin 2% (02/04/18 06:15) Labs Laboratory Tests Test 02/04/18 04:35 02/04/18 05:34 White Blood Count 9.4 TH/MM3 Red Blood Count 4.86 MIL/MM3 Hemoglobin 14.3 GM/DL Hematocrit 43.7 % Mean Corpuscular Volume 90.0 FL Mean Corpuscular Hemoglobin 29.4 PG Mean Corpuscular Hemoglobin Concent 32.7 % Red Cell Distribution Width 14.4 % Platelet Count 175 TH/MM3 Mean Platelet Volume 9.0 FL Neutrophils (%) (Auto) 53.6 % Lymphocytes (%) (Auto) 30.5 % Monocytes (%) (Auto) 11.9 % Eosinophils (%) (Auto) 1.2 % Basophils (%) (Auto) 2.8 % Neutrophils # (Auto) 5.0 TH/MM3 Lymphocytes # (Auto) 2.9 TH/MM3 Monocytes # (Auto) 1.1 TH/MM3 Eosinophils # (Auto) 0.1 TH/MM3 Basophils # (Auto) 0.3 TH/MM3 CBC Comment DIFF FINAL Differential Comment Blood Urea Nitrogen 20 MG/DL Creatinine 2.00 MG/DL Random Glucose 309 MG/DL Calcium Level 9.0 MG/DL Magnesium Level 2.1 MG/DL Sodium Level 140 MEQ/L Potassium Level 4.2 MEQ/L Chloride Level 109 MEQ/L Carbon Dioxide Level 23.7 MEQ/L Anion Gap 7 MEQ/L Estimat Glomerular Filtration Rate 40 ML/MIN Total Creatine Kinase 224 U/L Creatine Kinase MB 3.2 NG/ML Troponin I 0.05 NG/ML B-Type Natriuretic Peptide 554 PG/ML Prothrombin Time 11.8 SEC Prothromb Time International Ratio 1.2 RATIO Activated Partial Thromboplast Time 21.2 SEC MDM Medical Decision Making Medical Screen Exam Complete: Yes Emergency Medical Condition: Yes Medical Record Reviewed: Yes Interpretation(s) EKG sinus tachycardia rate 120 intraventricular conduction delay Last Impressions Chest X-Ray 02/04/18 0431 Signed Impressions: Service Date/Time: Sunday, February 04, 2018 04:41 - CONCLUSION: 1. Mild basilar airspace disease, probably mild pulmonary edema with small effusions and cardiomegaly. Edward Rice MD CBC & BMP Diagram 02/04/18 04:35 Calcium Level 9.0, Magnesium Level 2.1 Vital Signs Date Time Temp Pulse Resp B/P (MAP) Pulse Ox O2 Delivery O2 Flow Rate FiO2 02/04/18 05:48 100 24 188/87 (120) 100 BiPAP 02/04/18 05:10 100 BiPAP 40 02/04/18 05:10 100 BiPAP 02/04/18 05:04 82 Room Air 4/23/18 04:50 98 40 02/04/18 04:45 110 38 189/89 (122) 82 02/04/18 04:43 100 Nasal Cannula 5.00 Differential Diagnosis CHF, COPD exacerbation, HTN urgency, ACS, ME Narrative Course Patient placed on merchandising consultant noted to be markedly diaphoretic IV access obtain EKG performed sinus tachycardia with intraventricular conduction delay patient started on DuoNeb [facility] BiPAP ordered Lasix 40 mg IV administered Patient with pulmonary edema by chest x-ray Patient improving clinically no more diaphoresis work of breathing has eased on BiPAP after receiving Lasix Nitropaste 1 inch added to the chest wall for hypertension Lung sounds improved with increasing breath sounds noted on ventilation Troponin I 0.05 upper limit of normal BMP elevated at 550 Patient's case discussed with on-call medicine for admission Critical Care Narrative Aggregate critical care time was 30 minutes. Time to perform other separately billable procedures was not included in the critical care time. My time did not include minutes spent treating any other patients simultaneously or on activities that did not directly contribute to the patient's treatment. The services I provided to this patient were to treat and/or prevent clinically significant deterioration that could result in: Respiratory arrest, arrhythmia, I provided critical care services requiring my management, as noted below: Chart data review, documentation time, medication orders and management, vital sign assessments/reviewing monitor data, ordering and reviewing lab tests, ordering and interpreting/reviewing x-rays and diagnostic studies, care of the patient and discussion of the patient with the admitting physicians. Physician Communication Physician Communication discussed with Khushi Sigala --admit to [facility] step down Diagnosis Primary Impression: CHF (congestive heart failure) Additional Impression: COPD exacerbation Admitting Information Admitting Physician Requests: Admit Nayeli Archuleta MD Feb 04, 2018 04:39
[2018-02-04] MEDS: RESP: ALBUTEROL 2.5 MG/IPRATROPIUM 0.5 MG NEB (SCH) INH ×3 (04:43→05:07)
[2018-02-04] MEDS ORDERED: SODIUM CHLORIDE 0.9% FLUSH 10 ML FLUSH IVF PRN (04:45)
[2018-02-04] MEDS ORDERED: methylPREDNISolone SOD SUCC 125 MG/2 ML VIAL IV PUSH ONE (04:45)
[2018-02-04] MEDS ORDERED: FUROSEMIDE 40 MG/4 ML VIAL IV PUSH ONE (04:45)
[2018-02-04 04:48] LABS: BASOPHIL # 0.3 TH/MM3 (0-0.2); BASOPHIL % 2.8 % (0.0-2.0); EOSINOPHIL # 0.1 TH/MM3 (0-0.4); EOSINOPHIL % 1.2 % (0.0-4.0); HEMATOCRIT 43.7 % (39.0-51.0); HEMOGLOBIN 14.3 GM/DL (13.0-17.0); LYMPH % 30.5 % (9.0-44.0); LYMPHOCYTE # 2.9 TH/MM3 (1.0-4.8); MEAN CORPUSCULAR HEMOGLOBIN 29.4 PG (27.0-34.0); MEAN CORPUSCULAR HGB CONC 32.7 % (32.0-36.0); MONO % 11.9 % (0.0-8.0); MONOCYTE # 1.1 TH/MM3 (0-0.9); NEUT % 53.6 % (16.0-70.0); PLATELET COUNT 175 TH/MM3 (150-450); RED BLOOD COUNT 4.86 MIL/MM3 (4.50-5.90); RED CELL DISTRIBUTION WIDTH 14.4 % (11.6-17.2); WHITE BLOOD COUNT 9.4 TH/MM3 (4.0-11.0)
[2018-02-04 04:57] LABS: CHLORIDE 109 MEQ/L (98-107); SODIUM (NA) 140 MEQ/L (136-145)
[2018-02-04 05:00] LABS: BICARBONATE 23.7 MEQ/L (21.0-32.0); BLOOD UREA NITROGEN 20 MG/DL (7-18); GLUCOSE,RANDOM 309 MG/DL (74-106); MAGNESIUM 2.1 MG/DL (1.5-2.5)
[2018-02-04 05:03] LABS: GLOMERULAR FILTRATION RATE 40 ML/MIN (>89)
[2018-02-04 05:08] LABS: TROPONIN I 0.05 NG/ML (0.02-0.05)
--- NOTE | 2018-02-04 05:22 | RADRPT ---
EXAM DATE/TIME: 02/04/2018 04:41 [place] COMPARISON: CHEST SINGLE AP, October 10, 2017, 6:29. INDICATIONS : Shortness of breath. MEDICAL HISTORY : Hypertension. Hypercholesterolemia. Diabetes mellitus type II. COPD. Congestive Heart Failure. G astroesophageal reflux disease. SURGICAL HISTORY : CABG. Pacemaker. Cardiac catheterization with stent placement. ENCOUNTER: Initial ACUITY: 1 day PAIN SCORE: 0/10 LOCATION: Bilateral chest FINDINGS: A single view of the chest demonstrates pacer lead overlying right ventricle. Postop CABG. Cardiomega ly. Mild basilar airspace disease. No pneumothorax. Small pleural effusions. CONCLUSION: 1. Mild basilar airspace disease, probably mild pulmonary edema with small effusions and cardiomegaly . Edward Rice MD on February 04, 2018 at 5:19 Board Certified Radiologist. This report was verified electronically.
[2018-02-04] MEDS ORDERED: SODIUM CHLORIDE 0.9% FLUSH 10 ML FLUSH IV FLUSH PRN (06:00)
[2018-02-04] MEDS ORDERED: BISACODYL 10 MG SUPP RECTAL PRN (06:00)
[2018-02-04] MEDS ORDERED: MAGNESIUM HYDROXIDE SUSP 30 ML CUP PO PRN (06:00)
[2018-02-04] MEDS ORDERED: NALOXONE HCL 0.4 MG/ML AMP IV PUSH PRN (06:00)
[2018-02-04] MEDS ORDERED: SENNOSIDES 8.6 MG TAB PO PRN (06:00)
[2018-02-04] MEDS ORDERED: RESP: ALBUTEROL 2.5 MG/IPRATROPIUM 0.5 MG NEB (PRN) NEB ×2 (06:00→10:00)
[2018-02-04] MEDS ORDERED: LACTULOSE SYRUP 20 GM/30 ML CUP PO PRN (06:00)
[2018-02-04] MEDS ORDERED: NITROGLYCERIN 0.4 MG SL 25 TABS/BTL SL PRN (06:00)
[2018-02-04 06:03] LABS: INTERNATIONAL NORMALIZED RATIO 1.2 RATIO; PROTHROMBIN TIME - PATIENT 11.8 SEC (9.8-11.6)
[2018-02-04] MEDS ORDERED: NITROGLYCERIN 2% OINT 1 GM PACKET TOPICAL ONE (06:15)
[2018-02-04] MEDS ORDERED: hydrALAZINE HCL 20 MG/ML VIAL IV ONE (08:45)
[2018-02-04] MEDS: DOCUSATE SODIUM 50 MG/SENNA 8.6 MG TAB PO SCH ×2 (09:00→20:36)
[2018-02-04] MEDS ORDERED: LABETALOL HCL 100 MG/20 ML VIAL IV ONE (09:00)
[2018-02-04] MEDS ORDERED: FUROSEMIDE 40 MG/4 ML VIAL IVP SCH (09:00)
[2018-02-04] MEDS ORDERED: GLUCAGON 1 MG/ML VIAL OTHER PRN (09:15)
[2018-02-04] MEDS ORDERED: DEXTROSE 50% IN WATER 50 ML VIAL(D50) IV PUSH PRN (09:15)
[2018-02-04] MEDS: FUROSEMIDE 40 MG TAB PO SCH ×2 (09:15→20:36)
[2018-02-04] MEDS: SODIUM CHLORIDE 0.9% FLUSH 10 ML FLUSH IV FLUSH SCH ×2 (09:42→20:37)
[2018-02-04] MEDS: ASPIRIN 325 MG TAB PO SCH (09:42)
[2018-02-04] MEDS ORDERED: PILL SPLITTER OTHER PRN (09:45)
[2018-02-04] MEDS: INSULIN ASPART SUPPLEMENTAL SCALE SQ SCH ×3 (10:05→21:06)
[2018-02-04 11:46] LABS: TROPONIN I 0.08 NG/ML (0.02-0.05)
[2018-02-04] MEDS: CARVEDILOL 12.5 MG TAB PO SCH ×2 (12:12→20:35)
[2018-02-04] MEDS: FAMOTIDINE 20 MG TAB PO SCH ×2 (12:16→20:36)
[2018-02-04] MEDS: methylPREDNISolone SOD SUCC 40 MG/1 ML VIAL IV PUSH SCH ×2 (12:58→21:11)
[2018-02-04] MEDS: hydrALAZINE HCL 25 MG TAB PO SCH ×2 (12:59→18:21)
--- NOTE | 2018-02-04 12:59 | HHI.HP ---
[facility] Service [facility] Primary Care Physician Christofer Hernandez M.D. Admission Diagnosis chf; copd exacerbation Diagnoses: Chief Complaint: Shortness of breath Travel History International Travel<30 Days: No Contact w/Intl Traveler <30 Da: No Traveled to Known Affected Are: No History of Present Illness This patient is a 72-year-old gentleman with acute onset of increased shortness of breath and increased work of breathing which awoke him from sleep. He came to the hospital who was markedly hypoxemic with acute respiratory distress and diaphoretic. Patient did have a tachycardia 120 and was hypoxemic in the 80s was placed emergently on BiPAP with acute pulmonary edema. Patient did well with diuresis with blood pressure control however his blood pressure has remained uncontrolled and he has required IV medications for blood pressure. Patient had Nitropaste applied and felt a bit better. His troponins were slightly elevated and the patient is recommended for admission to the intensive care unit due to acute respiratory failure. Review of Systems Constitutional: DENIES: Diaphoretic episodes, Fatigue, Fever, Weight gain, Weight loss, Chills, Dizziness, Change in appetite, Night Sweats Endocrine: DENIES: Heat/cold intolerance, Polydipsia, Polyuria, Polyphagia Eyes: DENIES: Blurred vision, Diplopia, Eye inflammation, Eye pain, Vision loss , Photosensitivity, Double Vision Ears, nose, mouth, throat: DENIES: Tinnitus, Hearing loss, Vertigo, Nasal discharge, Oral lesions, Throat pain, Hoarseness, Ear Pain, Running Nose, Epistaxis, Sinus Pain, Toothache, Odynophagia Respiratory: COMPLAINS OF: Shortness of breath, DENIES: Apneas, Cough, Snoring , Wheezing, Hemoptysis, Sputum production Cardiovascular: COMPLAINS OF: Dyspnea on Exertion, DENIES: Chest pain, Palpitations, Syncope, PND, Lower Extremity Edema, Orthopnea, Claudication Gastrointestinal: DENIES: Abdominal pain, Black stools, Bloody stools, Constipation, Diarrhea, Nausea, Vomiting, Difficulty Swallowing, Anorexia Genitourinary: DENIES: Sexual dysfunction, Urinary frequency, Urinary incontinence, Urgency, Hematuria, Dysuria, Nocturia, Penile Discharge, Testicular Pain, Testicular Swelling Musculoskeletal: DENIES: Joint pain, Muscle aches, Stiffness, Joint Swelling, Back pain, Neck pain Integumentary: DENIES: Abnormal pigmentation, Nail changes, Pruritus, Rash Hematologic/lymphatic: DENIES: Bruising, Lymphadenopathy Immunologic/allergic: DENIES: Eczema, Urticaria Neurologic: DENIES: Abnormal gait, Headache, Localized weakness, Paresthesias, Seizures, Speech Problems, Tremor, Poor Balance Psychiatric: DENIES: Anxiety, Confusion, Mood changes, Depression, Hallucinations, Agitation, Suicidal Ideation, Homicidal Ideation, Delusions Except as stated in HPI: all other systems reviewed are Neg Past Family Social History Past Medical History Diabetes Hypertension COPD Heart failure Past Surgical History Coronary artery bypass Defibrillator Cardiac stents 8 Left BKA Eye surgery Reported Medications Reviewed in the EMR, nothing new Allergies: Coded Allergies: penicillin G (Unverified Allergy, Mild, ITCHING, 10/10/17) acetaminophen (Unverified Adverse Reaction, Severe, "MAKES ME GO CRAZY", 10/10/17) fluoxetine (Unverified Adverse Reaction, Severe, "MAKES ME GO CRAZY", ) hydrocodone (Unverified Adverse Reaction, Severe, "MAKES ME GO CRAZY", ) Active Ordered Medications Reviewed in the EMR Family History Coronary disease and congestive heart failure Social History Patient does still smoke one half packs Alcohol intermittently Lives with his Physical Exam Vital Signs Vital Signs Date Time Temp Pulse Resp B/P (MAP) Pulse Ox O2 Delivery O2 Flow Rate FiO2 02/04/18 10:33 98.8 104 16 188/90 (122) 98 02/04/18 10:16 98.2 96 20 171/80 (110) 98 Nasal Cannula 3.00 02/04/18 09:45 Nasal Cannula 3.00 02/04/18 09:39 98 Nasal Cannula 3.00 02/04/18 09:19 93 20 178/89 (118) 100 BiPAP 02/04/18 09:00 92 22 196/97 (130) 99 BiPAP 02/04/18 08:30 96 204/97 (132) 100 BiPAP 02/04/18 08:00 100 40 02/04/18 07:50 85 20 199/101 (133) 98 BiPAP 02/04/18 07:30 86 18 201/101 (134) 99 40 02/04/18 07:17 88 17 188/99 (128) 100 BiPAP 40 02/04/18 07:13 100 BiPAP 02/04/18 05:48 100 24 188/87 (120) 100 BiPAP 02/04/18 05:10 100 BiPAP 40 02/04/18 05:10 100 BiPAP 02/04/18 05:04 82 Room Air 02/04/18 04:50 98 40 02/04/18 04:45 110 38 189/89 (122) 82 02/04/18 04:43 100 Nasal Cannula 5.00 Physical Exam GENERAL: This is a well-nourished, well-developed patient, on BiPAP SKIN: No rashes, ecchymoses or lesions. Cool and dry. HEAD: Atraumatic. Normocephalic. No temporal or scalp tenderness. EYES: Pupils equal round and reactive. Extraocular motions intact. No scleral icterus. No injection or drainage. ENT: Nose without bleeding, purulent drainage or septal hematoma. Throat without erythema, tonsillar hypertrophy or exudate. Uvula midline. Airway patent. NECK: Trachea midline. No JVD or lymphadenopathy. Supple, nontender, no meningeal signs. CARDIOVASCULAR: Regular rate and rhythm without murmurs, gallops, or rubs. RESPIRATORY: Decreased breath sounds bilaterally GASTROINTESTINAL: Abdomen soft, non-tender, nondistended. No hepato-splenomegaly , or palpable masses. No guarding. MUSCULOSKELETAL: Extremities without clubbing, cyanosis, or edema. No joint tenderness, effusion, or edema noted. No calf tenderness. Negative Homans sign bilaterally. NEUROLOGICAL: Awake and alert. Cranial nerves II through XII intact. Motor and sensory grossly within normal limits. Five out of 5 muscle strength in all muscle groups. Normal speech. Laboratory Laboratory Tests Test 02/04/18 04:35 02/04/18 05:34 02/04/18 11:10 White Blood Count 9.4 Red Blood Count 4.86 Hemoglobin 14.3 Hematocrit 43.7 Mean Corpuscular Volume 90.0 Mean Corpuscular Hemoglobin 29.4 Mean Corpuscular Hemoglobin Concent 32.7 Red Cell Distribution Width 14.4 Platelet Count 175 Mean Platelet Volume 9.0 Neutrophils (%) (Auto) 53.6 Lymphocytes (%) (Auto) 30.5 Monocytes (%) (Auto) 11.9 Eosinophils (%) (Auto) 1.2 Basophils (%) (Auto) 2.8 Neutrophils # (Auto) 5.0 Lymphocytes # (Auto) 2.9 Monocytes # (Auto) 1.1 Eosinophils # (Auto) 0.1 Basophils # (Auto) 0.3 CBC Comment DIFF FINAL Differential Comment Blood Urea Nitrogen 20 Creatinine 2.00 Random Glucose 309 Calcium Level 9.0 Magnesium Level 2.1 Sodium Level 140 Potassium Level 4.2 Chloride Level 109 Carbon Dioxide Level 23.7 Anion Gap 7 Estimat Glomerular Filtration Rate 40 Lactic Acid Level 1.0 Total Creatine Kinase 224 145 Creatine Kinase MB 3.2 Troponin I 0.05 0.08 B-Type Natriuretic Peptide 554 Prothrombin Time 11.8 Prothromb Time International Ratio 1.2 Activated Partial Thromboplast Time 21.2 Date/Time Source Procedure Growth Status 02/04/18 05:34 Blood Peripheral Aerobic Blood Culture Pending Received 02/04/18 05:34 Blood Peripheral Anaerobic Blood Culture Pending Received Result Diagram: 02/04/18 0435 02/04/18 0435 Imaging Last Impressions Chest X-Ray 02/04/18430 Signed Impressions: Service Date/Time: Sunday, February 04, 2018 04:41 - CONCLUSION: 1. Mild basilar airspace disease, probably mild pulmonary edema with small effusions and cardiomegaly. Edward Rice MD Septic Shock Reassessment Septic shock perfusion: reassessment completed Caprini VTE Risk Assessment Caprini VTE Risk Assessment: Mod/High Risk (score >= 2) Caprini Risk Assessment Model Point Value = 1 Point Value = 2 Point Value = 3 Point Value = 5 Age 41-60 Minor surgery BMI > 25 kg/m2 Swollen legs Varicose veins or History of unexplained or recurrent spontaneous Oral contraceptives or hormone replacement Sepsis (< 1 month) Serious lung disease, including pneumonia (< 1 month) Abnormal pulmonary function Acute myocardial infarction Congestive heart failure (< 1 month) History of inflammatory bowel disease Medical patient at bed rest Age 61-74 Arthroscopic surgery Major open surgery (> 45 min) Laparoscopic surgery (> 45 min) Malignancy Confined to bed (> 72 hours) Immobilizing plaster cast Central venous access Age >= 75 History of VTE Family history of VTE Factor V Leiden Prothrombin [id number] Lupus anticoagulant Anticardiolipin antibodies Elevated serum homocysteine Heparin-induced thrombocytopenia Other congenital or acquired thrombophilia Stroke (< 1 month) Elective arthroplasty Hip, pelvis, or leg fracture Acute spinal cord injury (< 1 month) Prophylaxis Regimen Total Risk Factor Score Risk Level Prophylaxis Regimen 0-1 Low Early ambulation 2 Moderate Order ONE of the following: *Sequential Compression Device (SCD) *Heparin 5000 units SQ BID 3-4 Higher Order ONE of the following medications: *Heparin 5000 units SQ TID *Enoxaparin/Lovenox 40 mg SQ daily (WT < 150 kg, CrCl > 30 mL/min) *Enoxaparin/Lovenox 30 mg SQ daily (WT < 150 kg, CrCl > 10-29 mL/min) *Enoxaparin/Lovenox 30 mg SQ BID (WT < 150 kg, CrCl > 30 mL/min) AND/OR *Sequential Compression Device (SCD) 5 or more Highest Order ONE of the following medications: *Heparin 5000 units SQ TID (Preferred with Epidurals) *Enoxaparin/Lovenox 40 mg SQ daily (WT < 150 kg, CrCl > 30 mL/min) *Enoxaparin/Lovenox 30 mg SQ daily (WT < 150 kg, CrCl > 10-29 mL/min) *Enoxaparin/Lovenox 30 mg SQ BID (WT < 150 kg, CrCl > 30 mL/min) AND *Sequential Compression Device (SCD) Assessment and Plan Problem List: (1) CHF (congestive heart failure) ICD Code: I50.9 - Heart failure, unspecified Status: Acute Plan: patient seen and treated with aggressive diuresis in the ER. Doing better wean bipap encourage adherance (2) COPD exacerbation ICD Code: J44.1 - Chronic obstructive pulmonary disease with (acute) exacerbation Status: Acute Plan: continue nebs, steroids, wean as tolerated (3) Elevated troponin ICD Code: R74.8 - Abnormal levels of other serum enzymes Plan: cont trend, follow up [facility] (4) Acute hypoxemic respiratory failure ICD Code: J96.01 - Acute respiratory failure with hypoxia Plan: patient 82% on room air in er now on nc stable wean as to,erate no home o2 secondary due to pulm edema and copd (5) DM2 (diabetes mellitus, type 2) ICD Code: E11.9 - Type 2 diabetes mellitus without complications Plan: he is on quite a bit of insulin at home and reports poor adherence to his diet We will follow on insulin Watch for hypoglycemia while in a controlled environment on his diet Code Status full code Discussed 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 In the case of services not specified as inpatient-only, they are appropriately provided as inpatient services in accordance with the 2-midnight benchmark. Estimated LOS (days): 3 3 days is the estimated time the patient will need to remain in the hospital, assuming treatment plan goals are met and no additional complications. Post-Hospital Plan: Home Mariia Mckay MD Feb 04, 2018 12:59
[2018-02-04] MEDS: INSULIN ASPAR PROT 70/30 1,000 UNITS/10 ML VIAL SQ SCH (13:30)
[2018-02-04] MEDS: RESP: ALBUTEROL 2.5 MG/IPRATROPIUM 0.5 MG NEB (SCH) NEB ×2 (14:08→19:30)
[2018-02-04] MEDS ORDERED: cloNIDine HCL 0.1 MG TAB PO PRN (16:00)
[2018-02-04] MEDS ORDERED: INSULIN ASPAR PROT 70/30 1,000 UNITS/10 ML VIAL SQ SCH (17:00)
[2018-02-04 17:13] LABS: TROPONIN I 0.09 NG/ML (0.02-0.05)
--- NOTE | 2018-02-04 21:57 | EKG ---
Date Performed: 02/04/2018 Time Performed: 16:33:37 PTAGE: 72 years EKG: Sinus rhythm POSSIBLE LEFT ATRIAL ENLARGEMENT LEFT BUNDLE BRANCH BLOCK ABNORMAL ECG PREVIOUS TRACING : 02/04/2018 11.07 No significant change from previous tracing noted. DOCTOR: Jose Jason Interpretating Date/Time 02/04/2018 21:56:58
--- NOTE | 2018-02-04 23:57 | EKG ---
Date Performed: 02/04/2018 Time Performed: 11:07:00 PTAGE: 72 years EKG: SINUS TACHYCARDIA POSSIBLE LEFT ATRIAL ENLARGEMENT LBBB ABNORMAL ECG PREVIOUS TRACING : 02/04/2018 04.33 Since the previous tracing, no significant change noted DOCTOR: Martin Murillo Interpretating Date/Time 02/04/2018 23:55:51
[2018-02-05] VITALS (7 sets, daily range): BP systolic 148–173; BP diastolic 67–84; PULSE 80–90; RESP 17–21; TEMP 98.2–98.5; O2SAT 92–97
--- NOTE | 2018-02-05 00:07 | EKG ---
Date Performed: 02/04/2018 Time Performed: 04:33:54 PTAGE: 72 years EKG: SINUS TACHYCARDIA INTRAVENTRICULAR CONDUCTION DELAY ABNORMAL ECG INTERPRETATION BASED ON A DEFAULT AGE OF 40 YEARS Since the PREVIOUS TRACING , rate has increased DOCTOR: Martin Murillo Interpretating Date/Time 02/05/2018 00:05:43
[2018-02-05 05:15] LABS: AUTOMATED NEUTROPHIL # 12.9 TH/MM3 (1.8-7.7); BASOPHIL # 0.1 TH/MM3 (0-0.2); BASOPHIL % 0.7 % (0.0-2.0); HEMATOCRIT 41.9 % (39.0-51.0); HEMOGLOBIN 13.1 GM/DL (13.0-17.0); LYMPH % 7.7 % (9.0-44.0); LYMPHOCYTE # 1.1 TH/MM3 (1.0-4.8); MEAN CELL VOLUME 89.8 FL (80.0-100.0); MEAN CORPUSCULAR HGB CONC 31.2 % (32.0-36.0); MEAN PLATELET VOLUME 8.9 FL (7.0-11.0); MONO % 1.7 % (0.0-8.0); MONOCYTE # 0.2 TH/MM3 (0-0.9); NEUT % 89.9 % (16.0-70.0); PLATELET COUNT 163 TH/MM3 (150-450); RED BLOOD COUNT 4.67 MIL/MM3 (4.50-5.90); RED CELL DISTRIBUTION WIDTH 14.1 % (11.6-17.2); WHITE BLOOD COUNT 14.3 TH/MM3 (4.0-11.0)
[2018-02-05 05:25] LABS: CHLORIDE 109 MEQ/L (98-107); SODIUM (NA) 142 MEQ/L (136-145)
[2018-02-05 05:28] LABS: CALCIUM 9.4 MG/DL (8.5-10.1)
[2018-02-05 05:29] LABS: ALBUMIN 2.9 GM/DL (3.4-5.0); BICARBONATE 27.7 MEQ/L (21.0-32.0)
[2018-02-05 06:26] LABS: ALKALINE PHOSPHATASE 94 U/L (45-117); ALT (GPT) 33 U/L (12-78); AST (GOT) 17 U/L (15-37); BLOOD UREA NITROGEN 32 MG/DL (7-18); GLOMERULAR FILTRATION RATE 43 ML/MIN (>89); GLUCOSE,RANDOM 183 MG/DL (74-106); TOTAL BILIRUBIN ADULT 0.3 MG/DL (0.2-1.0); TOTAL PROTEIN 7.5 GM/DL (6.4-8.2)
[2018-02-05] MEDS: methylPREDNISolone SOD SUCC 40 MG/1 ML VIAL IV PUSH SCH ×2 (06:43→13:52)
[2018-02-05] MEDS ORDERED: INSULIN ASPAR PROT 70/30 1,000 UNITS/10 ML VIAL SQ SCH (07:00)
[2018-02-05] MEDS: RESP: ALBUTEROL 2.5 MG/IPRATROPIUM 0.5 MG NEB (SCH) NEB ×2 (07:37→14:36)
[2018-02-05] MEDS: FAMOTIDINE 20 MG TAB PO SCH (07:52)
[2018-02-05] MEDS: ASPIRIN 325 MG TAB PO SCH (07:52)
[2018-02-05] MEDS: FUROSEMIDE 40 MG TAB PO SCH (07:53)
[2018-02-05] MEDS: CARVEDILOL 12.5 MG TAB PO SCH (07:53)
[2018-02-05] MEDS: hydrALAZINE HCL 25 MG TAB PO SCH ×2 (07:54→12:10)
[2018-02-05] MEDS: DOCUSATE SODIUM 50 MG/SENNA 8.6 MG TAB PO SCH (09:00)
[2018-02-05] MEDS: INSULIN ASPART SUPPLEMENTAL SCALE SQ SCH ×2 (09:27→11:55)
[2018-02-05] MEDS: SODIUM CHLORIDE 0.9% FLUSH 10 ML FLUSH IV FLUSH SCH (09:27)
[2018-02-05] MEDS ORDERED: SODIUM CHLORID 0.9% 500 ML INJ 500 ML IV ONE (11:45)
--- NOTE | 2018-02-05 12:15 | HHI.PR ---
Subjective Remarks Nursing denies any deterioration since last night. Patient himself says he feels much better since admission. Was able to ambulate up and down the hallway per nursing and had no chest pain or significant shortness of breath. Objective Vital Signs Date Time Temp Pulse Resp B/P (MAP) Pulse Ox O2 Delivery O2 Flow Rate FiO2 02/05/18 07:38 96 21 02/05/18 04:44 98.4 86 19 148/73 (98) 92 02/05/18 02:24 82 20 151/67 (95) 94 02/05/18 00:00 98.5 80 17 95 02/04/18 23:37 80 24 160/79 (106) 95 02/04/18 23:00 80 02/04/18 22:41 84 25 170/72 (104) 96 02/04/18 20:29 98.6 92 21 186/78 (114) 95 02/04/18 20:00 88 19 94 02/04/18 19:30 95 Nasal Cannula 2.00 02/04/18 19:00 96 02/04/18 18:00 92 02/04/18 17:00 96 02/04/18 16:00 98.8 88 20 156/74 (101) 96 02/04/18 16:00 86 02/04/18 15:00 92 02/04/18 14:08 99 Nasal Cannula 2.00 02/04/18 14:00 92 14 167/85 (112) 97 02/04/18 14:00 94 02/04/18 13:00 100 02/04/18 13:00 98.8 100 27 174/81 (112) 97 I/O 02/04/18 02/04/18 02/04/18 02/05/18 02/05/18 02/05/18 07:00 15:00 23:00 07:00 15:00 23:00 Intake Total 520 ml 120 ml Output Total 600 ml 550 ml 975 ml Balance -600 ml -30 ml -855 ml Intake Oral 520 ml 120 ml Output Urine Total 600 ml 550 ml 975 ml # Voids 3 # Bowel Movements 0 0 Result Diagram: 02/05/18 0450 02/05/18 0450 Objective Remarks Slightly diminished breath sounds in the bases that are otherwise clear, no wheezing is heard No cyanosis, no labored breathing Heart sounds are regular rate rhythm, no murmurs, no lower extremity edema in the right lower leg, left lower leg is prosthetic A/P Assessment and Plan Acute hypoxemic respiratory failure Likely secondary to both CHF and COPD exacerbation Resolved today as is on RA, see treatments below Acute systolic CHF (congestive heart failure) Clinically improved since admission continue home dose oral Lasix, no CARMEN inhibitor per previous cardiology notes for renal insufficiency COPD exacerbation Acute Significantly improved clinically since admission, continue nebs, steroids, wean as tolerated Elevated troponin cont trend, Could be from his ischemic demand, awaiting cardiology to call back to give recommendations DM2 (diabetes mellitus, type 2) he is on quite a bit of insulin at home and reports poor adherence to his diet We will follow on insulin Watch for hypoglycemia while in a controlled environment on his diet CKD -Was not put on CARMEN inhibitor in the past per cardiology for this reason Addendum: Patient was able to ambulate without any chest pain or significant shortness of breath. Patient wanting to go home. Discussed case with patient' s taker out regarding elevated troponins in setting of acute hypoxic respiratory failure (now resolved) and chronically impaired renal function, okay for discharge with close follow-up in clinic. Patient was counseled on the importance of fluid restriction and lifestyle modifications for both his CHF and uncontrolled diabetes. Will be started on albuterol as needed and Symbicort scheduled at home. Patient has met maximal benefit from hospitalization and is clinically stable for discharge. Cayden Padgett MD Feb 05, 2018 12:15
[2018-02-05] MEDS ORDERED: PRED10PA PO (13:46)
--- NOTE | 2018-02-05 13:47 | HHI.DCPOC ---
Discharge Care Plan Diagnosis: (1) Acute hypoxemic respiratory failure (2) Elevated troponin (3) CHF (congestive heart failure) (4) COPD exacerbation Goals to Promote Your Health * To prevent worsening of your condition and complications * To maintain your health at the optimal level Directions to Meet Your Goals Take your medications as prescribed Follow your dietary instruction Follow activity as directed Keep your appointments as scheduled Take your immunizations and boosters as scheduled If your symptoms worsen call your PCP, if no PCP go to Urgent Care Center or Emergency Room Smoking is Dangerous to Your Health. Avoid second hand smoke Call the 24-hour hour crisis hotline for domestic abuse at Cayden Padgett MD Feb 05, 2018 13:47
[2018-02-05] MEDS ORDERED: VENTAER INH (13:50)
[2018-02-05] MEDS: INSULIN ASPAR PROT 70/30 1,000 UNITS/10 ML VIAL SQ SCH (13:50)
[2018-02-05] MEDS ORDERED: SYMB80AE INH (13:50)
== END 2018-02-05 17:21 | disposition home or self-care (01) | DRG 291 ==
LOC: PHED 04:28 → PHEDA 06:08 → PHICU 10:50
PROVIDERS: ADMIT Hospitalist; ATTEND Hospitalist
PROC: 5A09357 Assistance with Respiratory Ventilation, Less than 24 Consecutive Hours, Continuous Positive Airway Pressure (ICD-10-PCS; principal; 2018-02-04)
DX: I13.0 Hypertensive heart and chronic kidney disease with heart failure and stage 1 through stage 4 chronic kidney disease, or unspecified chronic kidney disease (principal); I50.21 Acute systolic (congestive) heart failure; J96.01 Acute respiratory failure with hypoxia; J44.1 Chronic obstructive pulmonary disease with (acute) exacerbation; M06.841 Other specified rheumatoid arthritis, right hand; E11.22 Type 2 diabetes mellitus with diabetic chronic kidney disease; I25.10 Atherosclerotic heart disease of native coronary artery without angina pectoris; E78.5 Hyperlipidemia, unspecified; N18.9 Chronic kidney disease, unspecified; K21.9 Gastro-esophageal reflux disease without esophagitis; I25.2 Old myocardial infarction; R74.8 Abnormal levels of other serum enzymes; F17.200 Nicotine dependence, unspecified, uncomplicated; F41.9 Anxiety disorder, unspecified; Z79.4 Long term (current) use of insulin; Z82.49 Family history of ischemic heart disease and other diseases of the circulatory system; Z88.0 Allergy status to penicillin; Z88.5 Allergy status to narcotic agent; Z88.6 Allergy status to analgesic agent; Z89.512 Acquired absence of left leg below knee; Z91.11 Patient's noncompliance with dietary regimen; Z95.1 Presence of aortocoronary bypass graft; Z95.5 Presence of coronary angioplasty implant and graft; Z95.810 Presence of automatic (implantable) cardiac defibrillator
CPT/HCPCS: 71045; 80048; 80053; 82550; 82552; 82948; 83605; 83735; 83880; 84484; 85025; 85610; 85730; 86403; 87040; 87077; 87186; 87205; 93005; 94002; 94640; 94664; 96374; 96375; J0360; J1815; J1940; J2920; J2930

== ENCOUNTER 2018-10-12 21:53 | Observation (INO) ==
--- NOTE | 2018-10-12 23:13 | XR ---
EXAM DATE: 10/12/2018 11:07 PM EST AGE/SEX: 72 years / Male INDICATIONS: Cough. CLINICAL DATA: This is the patient's initial encounter. Patient reports that signs and symptoms have been present for 1 week and indicates a pain score of 0/10. MEDICAL/SURGICAL HISTORY: . Hypertension. Hypercholesterolemia. Diabetes mellitus type II. [employer] OPER[employer] D. Congestive Heart Failure. Gastroesophageal reflux disease. . CABG. Cardiac catheterization with stent placement. COMPARISON: . FINDINGS: Mild parenchymal consolidation seen in each lung base, right more so than left. No pleural effusion d emonstrated. No pneumothorax. Heart size stable, upper limits of normal. Patient has had previous median sternotomy. Cardiac pacer/ defibrillator again noted. CONCLUSION: 1. Mild parenchymal consolidation of both bases. 2. Borderline compensated cardiomegaly unchanged. Electronically signed by: Angelo Piña MD Board Certified Radiologist 10/12/2018 11:12 PM EST
[2018-10-12 23:39] LABS: Baso # (Auto) 0.1 th/mm3 (0.0-0.2); Baso % (Auto) 1.8 % (0.0-2.0); Eos # (Auto) 0.2 th/mm3 (0.0-0.4); Eos % (Auto) 2.2 % (0.0-4.0); Hematocrit 46.7 % (39.0-51.0); Hemoglobin 15.1 gm/dL (13.0-17.0); Lymph # (Auto) 2.3 th/mm3 (1.0-4.8); Lymph % (Auto) 29.3 % (9.0-44.0); Mean Corpuscular HGB Conc 32.3 % (32.0-36.0); Mean Corpuscular Hemoglobin 29.1 pg (27.0-34.0); Mean Corpuscular Volume 90.1 fL (80.0-100.0); Mean Platelet Volume 9.5 fL (7.0-11.0); Mono # (Auto) 0.9 th/mm3 (0.0-0.9); Mono % (Auto) 11.4 % (0.0-8.0); Neut # (Auto) 4.3 th/mm3 (1.8-7.7); Neut % (Auto) 55.3 % (16.0-70.0); Platelet Count 118 th/mm3 (150-450); Red Blood Count 5.19 mil/mm3 (4.50-5.90); Red Cell Distribution Width 13.9 % (11.6-17.2); White Blood Count 7.8 th/mm3 (4.0-11.0)
[2018-10-12 23:43] LABS: Chloride 108 meq/L (98-107); Potassium 4.8 meq/L (3.5-5.1); Sodium 141 meq/L (136-145)
[2018-10-12 23:47] LABS: Albumin 3.5 g/dL (3.4-5.0); Anion Gap 8 meq/L (5-15); Carbon Dioxide 25.3 meq/L (21.0-32.0)
[2018-10-13] MEDS ORDERED: Dextrose 50% in Water Syringe 50 ML ONE (00:10)
[2018-10-13 00:12] LABS: Alanine Aminotransferase 32 U/L (12-78); Alkaline Phosphatase 98 U/L (45-117); Aspartate Aminotransferase 49 U/L (15-37); Blood Urea Nitrogen 30 mg/dL (7-18); Glomerular Filtration Rate 43 mL/min (>89); Troponin I 0.07 ng/mL (0.02-0.05)
[2018-10-13 00:17] LABS: Glucose,Random 29 mg/dL (74-106)
[2018-10-13] MEDS ORDERED: Bisacodyl 10 MG Supp RECTAL PRN (01:25)
[2018-10-13] MEDS ORDERED: Dextrose 50% in Water 50 ML Vial IV.PUSH PRN (01:25)
--- NOTE | 2018-10-13 02:11 | ED ---
HPI General Chief complaint: Respiratory Symptoms Stated complaint: Cough x1Wk Time Seen by Provider: 10/12/18 22:42 Source: patient and family Mode of arrival: ambulatory Limitations: no limitations History of Present Illness HPI narrative: This is a 72-year-old male who has a history of COPD and heart disease with multiple stents in the past who presents to the emergent, constant , worse with laying flat and worse in the evenings with no associated fevers or chills. He says he has not missed any of his Lasix doses. The cough has been keeping him up at night. He also feels more short of breath when he exerts himself. He denies any chest pain. His reports that 2 nights ago EMS had to come out to the house because the patient's blood sugar was low. They administered him glucose but he declined going to the hospital at that time. Tonight he has been a little bit sweaty. Related Data Home Medications Medication Instructions Recorded Confirmed albuterol sulfate [Ventolin HFA] 2 puff INHALATION Q4-6H PRN 07/31/18 10/12/18 aspirin 352 mg PO DAILY 07/31/18 10/12/18 atorvastatin [Lipitor] 80 mg PO DAILY 07/31/18 10/12/18 budesonide-formoterol [Symbicort] 2 puff INHALATION BID 07/31/18 10/12/18 carvedilol 25 mg PO BID 07/31/18 10/12/18 furosemide [Lasix] 40 mg PO BID 07/31/18 10/12/18 hydralazine 25 mg PO TID 07/31/18 10/12/18 insulin asp prt-insulin aspart 80 unit SUBCUT BID 07/31/18 10/12/18 [Novolog Mix 70-30 U-100 Insuln] pentoxifylline 400 mg PO TID 07/31/18 10/12/18 ranitidine HCl 150 mg PO DAILY 07/31/18 10/12/18 insulin asp prt-insulin aspart 30 unit SUBCUT DAILY 10/12/18 10/12/18 Allergies Allergy/AdvReac Type Severity Reaction Status Date / Time penicillin G Allergy Mild ITCHING Verified 10/12/18 22:45 acetaminophen AdvReac Severe "MAKES ME Verified 10/12/18 22:45 GO CRAZY" fluoxetine AdvReac Severe "MAKES ME Verified 10/12/18 22:45 GO CRAZY" hydrocodone AdvReac Severe "MAKES ME Verified 10/12/18 22:45 GO CRAZY" Review of Systems ROS: all other systems reviewed are negative [facility] Medical History Medical History COPD (chronic obstructive pulmonary disease) (Acute) Diabetes (Acute) HTN (hypertension) (Acute) High cholesterol (Acute) History of implantable cardiac defibrillator (ICD) (Acute) Surgical History Surgical History Amputated below knee (Acute) Hx of CABG (Acute) Social History Social History Substance History: No History of Abuse Smoking Status: Current every day smoker Tobacco Type: Cigarettes How Often Do You Have a Drink Containing Alcohol: Never Recent Travel in [facility] within the Last 8 Weeks: No Recent Out of Country Travel within the Last 8 Weeks: No Immunization History Tetanus Immunization: >5 Years Exam Narrative Exam Narrative: GENERAL:Well appearing, no acute distress SKIN: Focused skin assessment warm and dry. HEAD: Atraumatic. Normocephalic. EYES: Pupils equal and round. No injection or drainage. ENT: Moist mucous membranes NECK: Trachea midline. Jugular venous distention to the mid neck CARDIOVASCULAR: Rales in the bilateral lung bases. No increased work of breathing. RESPIRATORY: Clear to auscultation. Breath sounds equal bilaterally. GASTROINTESTINAL: Abdomen soft, non-tender, nondistended. MUSCULOSKELETAL: No obvious deformities. NEUROLOGICAL: Awake and alert. No obvious cranial nerve deficits. Moving all extremities. PSYCHIATRIC: Appropriate mood and affect; insight and judgment normal. Course Initial Documented Vital Signs Temperature 98.7 F 10/12/18 21:55 Pulse Rate 93 H 10/12/18 21:55 Blood Pressure 171/93 H 10/12/18 21:55 Pulse Oximetry 96 10/12/18 21:55 Last Documented Vital Signs Temperature 98.7 F 10/12/18 21:55 Pulse Rate 84 10/13/18 02:25 Respiratory Rate 16 10/13/18 02:25 Blood Pressure 169/90 H 10/13/18 02:25 Pulse Oximetry 95 10/13/18 02:25 Medical Decision Making MDM Narrative Medical decision making narrative: and COPD who presents to the emergency department with increasing cough. Based on his physical exam and history I suspect this is congestive heart failure. Chest x-ray demonstrates some bibasilar consolidation. He has no leukocytosis or fever to suggest pneumonia.This is a 72-year-old male who has a history of congestive heart failure. He was placed on a monitor and an IV was established. He was given 40 mg of IV Lasix. I was called into the room and the patient was confused and diaphoretic. Blood sugar was checked and it was in the 30s. He was given an amp of D50. He was given food. Given he is on long-acting insulin I think it is reasonable to place the patient in observation for serial glucose checks. Medical Screen Exam Complete: Yes Emergency Medical Condition: Yes Lab Data Result diagrams: 10/12/18 23:21 10/12/18 23:21 Lab Results 10/12/18 10/12/18 10/12/18 Range/Units 23:21 23:21 23:21 CBC w Diff Auto diff final WBC 7.8 (4.0-11.0) th/mm3 RBC 5.19 (4.50-5.90) mil/mm3 Hgb 15.1 (13.0-17.0) gm/dL Hct 46.7 (39.0-51.0) % MCV 90.1 (80.0-100.0) fL MCH 29.1 (27.0-34.0) pg MCHC 32.3 (32.0-36.0) % RDW 13.9 (11.6-17.2) % Plt Count 118 L (150-450) th/mm3 MPV 9.5 (7.0-11.0) fL Neut % (Auto) 55.3 (16.0-70.0) % Lymph % (Auto) 29.3 (9.0-44.0) % [place] % (Auto) 11.4 H (0.0-8.0) % Eos % (Auto) 2.2 (0.0-4.0) % Baso % (Auto) 1.8 (0.0-2.0) % Neut # (Auto) 4.3 (1.8-7.7) th/mm3 Lymph # (Auto) 2.3 (1.0-4.8) th/mm3 [place] # (Auto) 0.9 (0.0-0.9) th/mm3 Eos # (Auto) 0.2 (0.0-0.4) th/mm3 Baso # (Auto) 0.1 (0.0-0.2) th/mm3 WBC Differential . Differential Comment . Sodium 141 (136-145) meq/L Potassium 4.8 (3.5-5.1) meq/L Chloride 108 H (98-107) meq/L Carbon Dioxide 25.3 (21.0-32.0) meq/L Anion Gap 8 (5-15) meq/L BUN 30 H (7-18) mg/dL Creatinine 1.90 H (0.60-1.30) mg/dL Estimated GFR 43 L (>89) mL/min POC Glucose (68-110) mg/dl Random Glucose 29 L* (74-106) mg/dL Calcium 9.0 (8.5-10.1) mg/dL Total Bilirubin 0.6 (0.2-1.0) mg/dL AST 49 H (15-37) U/L ALT 32 (12-78) U/L Alkaline Phosphatase 98 (45-117) U/L Troponin I 0.07 H (0.02-0.05) ng/mL B-Natriuretic Peptide 115 H (0-100) pg/mL Total Protein 8.0 (6.4-8.2) g/dL Albumin 3.5 (3.4-5.0) g/dL 10/13/18 10/13/18 Range/Units 00:09 00:21 CBC w Diff WBC (4.0-11.0) th/mm3 RBC (4.50-5.90) mil/mm3 Hgb (13.0-17.0) gm/dL Hct (39.0-51.0) % MCV (80.0-100.0) fL MCH (27.0-34.0) pg MCHC (32.0-36.0) % RDW (11.6-17.2) % Plt Count (150-450) th/mm3 MPV (7.0-11.0) fL Neut % (Auto) (16.0-70.0) % Lymph % (Auto) (9.0-44.0) % [place] % (Auto) (0.0-8.0) % Eos % (Auto) (0.0-4.0) % Baso % (Auto) (0.0-2.0) % Neut # (Auto) (1.8-7.7) th/mm3 Lymph # (Auto) (1.0-4.8) th/mm3 [place] # (Auto) (0.0-0.9) th/mm3 Eos # (Auto) (0.0-0.4) th/mm3 Baso # (Auto) (0.0-0.2) th/mm3 WBC Differential Differential Comment Sodium (136-145) meq/L Potassium (3.5-5.1) meq/L Chloride (98-107) meq/L Carbon Dioxide (21.0-32.0) meq/L Anion Gap (5-15) meq/L BUN (7-18) mg/dL Creatinine (0.60-1.30) mg/dL Estimated GFR (>89) mL/min POC Glucose 32 L* 155 H (68-110) mg/dl Random Glucose (74-106) mg/dL Calcium (8.5-10.1) mg/dL Total Bilirubin (0.2-1.0) mg/dL AST (15-37) U/L ALT (12-78) U/L Alkaline Phosphatase (45-117) U/L Troponin I (0.02-0.05) ng/mL B-Natriuretic Peptide (0-100) pg/mL Total Protein (6.4-8.2) g/dL Albumin (3.4-5.0) g/dL Imaging Data Radiologist's impression: Chest X-Ray 10/12/18 22:55 CONCLUSION: 1. Mild parenchymal consolidation of both bases. 2. Borderline compensated cardiomegaly unchanged. Discharge Plan Discharge Disposition Patient Disposition: ED Admit(ED Internal Use Only) Discharge Order Discharge Orders: ED Use Only Admit Order (Routine); Ordered 10/13/18 Ordered By: Darline Nicole Discharge Details Diagnosis: Hypoglycemia Physicians Team ED Provider: Darline Nicole Primary Care Provider: Christofer Hernandez V Attending Provider: Amelia Machado Discharge Interventions Interventions: Vital Signs Last Done: 10/13/18 00:24 Status ED Status: Admitted Observation Patient
[2018-10-13] MEDS: Dextrose 5% in Water Inj 1,000 ML IV.CONT SCH (07:54)
[2018-10-13] MEDS: Senna/Docusate Sodium 8.6/50 MG Tablet PO SCH ×2 (08:19→21:22)
[2018-10-13 08:44] LABS: Baso # (Auto) 0.2 th/mm3 (0.0-0.2); Baso % (Auto) 2.2 % (0.0-2.0); Eos # (Auto) 0.1 th/mm3 (0.0-0.4); Eos % (Auto) 1.7 % (0.0-4.0); Hematocrit 45.9 % (39.0-51.0); Lymph # (Auto) 2.3 th/mm3 (1.0-4.8); Lymph % (Auto) 31.9 % (9.0-44.0); Mean Corpuscular HGB Conc 32.7 % (32.0-36.0); Mean Corpuscular Hemoglobin 29.7 pg (27.0-34.0); Mean Corpuscular Volume 90.8 fL (80.0-100.0); Mean Platelet Volume 9.6 fL (7.0-11.0); Mono # (Auto) 0.7 th/mm3 (0.0-0.9); Mono % (Auto) 10.2 % (0.0-8.0); Platelet Count 116 th/mm3 (150-450); Red Blood Count 5.06 mil/mm3 (4.50-5.90); Red Cell Distribution Width 13.7 % (11.6-17.2); White Blood Count 7.3 th/mm3 (4.0-11.0)
[2018-10-13] MEDS: Carvedilol 12.5 MG Tablet PO SCH ×2 (08:58→21:23)
[2018-10-13] MEDS: Aspirin 325 MG Tablet PO SCH (08:58)
[2018-10-13] MEDS: Famotidine 20 MG Tablet PO SCH ×2 (08:59→21:22)
[2018-10-13 09:05] LABS: Alanine Aminotransferase 30 U/L (12-78); Albumin 3.6 g/dL (3.4-5.0); Alkaline Phosphatase 96 U/L (45-117); Anion Gap 7 meq/L (5-15); Aspartate Aminotransferase 24 U/L (15-37); Blood Urea Nitrogen 31 mg/dL (7-18); Calcium 8.8 mg/dL (8.5-10.1); Carbon Dioxide 27.7 meq/L (21.0-32.0); Chloride 107 meq/L (98-107); Creatine Kinase 299 U/L (39-308); Glomerular Filtration Rate 45 mL/min (>89); Potassium 3.8 meq/L (3.5-5.1); Sodium 142 meq/L (136-145); Total Protein 7.8 g/dL (6.4-8.2)
[2018-10-13 09:06] LABS: Troponin I 0.07 ng/mL (0.02-0.05)
[2018-10-13 09:13] LABS: Glucose,Random 49 mg/dL (74-106)
[2018-10-13 09:18] LABS: Creatine Kinase MB 4.6 ng/mL (0.5-3.6)
[2018-10-13] MEDS: Budesonide-Formoterol 80/4.5 MCG 6.9 GM Inhaler INH SCH ×2 (10:20→21:25)
--- NOTE | 2018-10-13 15:13 | P.HPIM ---
History of Present Illness Primary Care Physician: Christofer Hernandez MD History of Present Illness: 72-year-old male with a history of coronary artery disease status post CABG, COPD, chronic smoking history, diabetes mellitus on insulin who presents with a one-week history of cough productive of brown sputum, shortness of breath, decreased appetite, unmeasured fevers. Patient notes that several days ago he was noted to have low blood sugars which resolved with dietary sugar. Patient noted to have hyperglycemia on admission here. Patient says he is feeling better since admission. Denies any lower extremity edema. He says his cough is worse lying down but denies any shortness of breath lying down. He says that his insulin was recently decreased, however denies any other recent changes in medication. Review of Systems All other systems reviewed negative except as stated in HPI [facility] - History History Provided By: Patient - Medical History Medical History: Medical History (Last Reviewed 10/13/18 @ 15:36 by Girish Jeffers MD) COPD (chronic obstructive pulmonary disease) Diabetes HTN (hypertension) High cholesterol History of implantable cardiac defibrillator (ICD) - Surgical History Surgical History: Surgical History (Last Reviewed 10/13/18 @ 15:36 by Girish Jeffers MD) Amputated below knee Hx of CABG - Family History Family History: Family History (Last Updated 10/13/18 @ 15:36 by Girish Jeffers MD) Mother Family estrangement Father Family estrangement - Social History I have reviewed the patient's Social History: Yes - Tobacco History Second Hand Smoke Exposure: Yes Tobacco Use In Past 30 Days: Yes Smoking Status: Current every day smoker Tobacco Type: Cigarettes - Alcohol History How Often Do You Have a Drink Containing Alcohol: Never - Substance Use History Substance History: No History of Abuse - Travel History Recent Travel in the [place] Within the Last 8 Weeks: No Recent Travel Out of the Country Within the Last 8 Weeks: No - Immunization History Tetanus Immunization: >5 Years Medications and Allergies Active Medications: Active Medications Al Hydroxide/Mg Hydroxide (Milk Of Liliana Liq) 30 ml PO Q12H PRN PRN Reason: Mild Constipation Albuterol (Duoneb Neb (Prn)) 1 ampul NEB Q4HR NEB PRN PRN Reason: SOB/WHEEZING Last Admin: 10/13/18 14:01 Dose: 1 ampul Aspirin (Aspirin) 325 mg PO DAILY [facility] Last Admin: 10/13/18 08:58 Dose: 325 mg Atorvastatin Calcium (Lipitor) 80 mg PO DAILY [facility] Last Admin: 10/13/18 08:20 Dose: 80 mg Bisacodyl (Dulcolax Supp) 10 mg RECTAL DAILY PRN PRN Reason: SEVERE CONSITIPATION Budesonide/Formoterol Fumarate (Symbicort 80/4.5 Mcg Inh) 2 puff INH BID [facility] Last Admin: 10/13/18 10:20 Dose: 2 puff Carvedilol (Coreg) 25 mg PO BID [facility] Last Admin: 10/13/18 08:58 Dose: 25 mg Dextrose (D50w Vial) 50 ml IV.PUSH UNSCH PRN PRN Reason: PER HYPOGLYCEMIA PROTOCOL Last Admin: 10/13/18 03:14 Dose: 50 ml Famotidine (Pepcid) 10 mg PO BID [facility] Last Admin: 10/13/18 08:59 Dose: 10 mg Furosemide (Lasix Inj) 20 mg IV.PUSH BID@0900,1800 [facility] Last Admin: 10/13/18 08:19 Dose: 20 mg Glucagon (Glucagon Inj) 1 mg OTHER PRN PRN PRN Reason: for Hypoglycemia Protocol Dextrose (D5w Inj) 1,000 mls @ 42 mls/hr IV.CONT .[id number] [facility] Last Admin: 10/13/18 07:54 Dose: 42 mls/hr Lactulose (Lactulose Liq) 30 ml PO DAILY PRN PRN Reason: SEVERE CONSITIPATION Ondansetron HCl (Zofran Inj) 4 mg IV.PUSH Q6H PRN PRN Reason: NAUSEA OR VOMITING Senna/Docusate Sodium (Jenna-Colace) 1 tab PO BID [facility] Last Admin: 10/13/18 08:19 Dose: 1 tab Sennosides (Senokot) 17.2 mg PO Q12H PRN PRN Reason: Moderate Constipation Sodium Chloride (Ns Flush) 2 ml IV.FLUSH BID [facility] Last Admin: 10/13/18 08:22 Dose: 2 ml Sodium Chloride (Ns Flush) 2 ml IV.FLUSH PRN PRN PRN Reason: FLUSH AFTER USING IV ACCESS Allergies Allergy/AdvReac Type Severity Reaction Status Date / Time penicillin G Allergy Mild ITCHING Verified 10/12/18 22:45 acetaminophen AdvReac Severe "MAKES ME Verified 10/12/18 22:45 GO CRAZY" fluoxetine AdvReac Severe "MAKES ME Verified 10/12/18 22:45 GO CRAZY" hydrocodone AdvReac Severe "MAKES ME Verified 10/12/18 22:45 GO CRAZY" Home Medications Medication Instructions Recorded Confirmed Type albuterol sulfate [Ventolin HFA] 2 puff INHALATION Q4-6H PRN 07/31/18 10/12/18 History aspirin 352 mg PO DAILY 07/31/18 10/12/18 History atorvastatin [Lipitor] 80 mg PO DAILY 07/31/18 10/12/18 History budesonide-formoterol [Symbicort] 2 puff INHALATION BID 07/31/18 10/12/18 History carvedilol 25 mg PO BID 07/31/18 10/12/18 History furosemide [Lasix] 40 mg PO BID 07/31/18 10/12/18 History hydralazine 25 mg PO TID 07/31/18 10/12/18 History insulin asp prt-insulin aspart 80 unit SUBCUT BID 07/31/18 10/12/18 History [Novolog Mix 70-30 U-100 Insuln] pentoxifylline 400 mg PO TID 07/31/18 10/12/18 History ranitidine HCl 150 mg PO DAILY 07/31/18 10/12/18 History insulin asp prt-insulin aspart 30 unit SUBCUT DAILY 10/12/18 10/12/18 History Exam Vital signs: Vital Signs 10/12/18 21:55 10/12/18 23:24 10/13/18 00:24 Temperature 98.7 F Pulse Rate 93 H 87 83 Respiratory Rate 18 18 Blood Pressure 171/93 H 164/81 H 180/89 H Pulse Oximetry 96 98 96 10/13/18 02:25 10/13/18 04:00 10/13/18 04:12 Temperature 96.7 F L Pulse Rate 84 56 L 87 Respiratory Rate 16 20 18 Blood Pressure 169/90 H 138/86 Pulse Oximetry 95 97 96 10/13/18 08:00 10/13/18 09:08 10/13/18 11:32 Temperature 98.1 F 97.5 F L Pulse Rate 85 84 86 Respiratory Rate 20 20 20 Blood Pressure 149/78 H 159/74 H Pulse Oximetry 95 94 L 95 10/13/18 14:02 Temperature Pulse Rate 83 Respiratory Rate 16 Blood Pressure Pulse Oximetry Intake & Output 10/12/18 10/13/18 10/13/18 18:59 06:59 18:59 Intake Total 410 / 410 Output Total 500 / 500 Balance -90 / -90 Weight 87.6 kg Intake: IV 50 / 50 D50W Syringe 50 ML @ 0 mls/hr . 50 / 50 [address] .[employer] Rx#: [id number] Oral 360 / 360 Output: Urine 500 / 500 Other: # Voids 1 Weight On Admission 87.6 kg Narrative: GENERAL: Patient sitting up in bed. Appears comfortable. Alert and oriented x3. SKIN: Warm and dry. HEAD: Atraumatic. Normocephalic. EYES: Pupils equal and round. No scleral icterus. No injection or drainage. ENT: No nasal bleeding or discharge. Mucous membranes pink and moist. NECK: Trachea midline. No JVD. CARDIOVASCULAR: Regular rate and rhythm. RESPIRATORY: No accessory muscle use. Clear to auscultation. Breath sounds equal bilaterally. GASTROINTESTINAL: Abdomen soft, non-tender, nondistended. Hepatic and splenic margins not palpable. MUSCULOSKELETAL: Extremities without clubbing, cyanosis, or edema. No obvious deformities. NEUROLOGICAL: Awake and alert. No obvious cranial nerve deficits. Motor grossly within normal limits. Five out of 5 muscle strength in the arms and legs. Normal speech. PSYCHIATRIC: Appropriate mood and affect; insight and judgment normal. Results - Labs CBC & Chem 7: 10/13/18 07:21 10/13/18 07:21 Labs: Short CBC 10/12/18 10/13/18 Range/Units 23:21 07:21 WBC 7.8 7.3 (4.0-11.0) th/mm3 Hgb 15.1 15.0 (13.0-17.0) gm/dL Hct 46.7 45.9 (39.0-51.0) % Plt Count 118 L 116 L (150-450) th/mm3 [facility] 10/12/18 10/13/18 23:21 07:21 Sodium 141 142 Potassium 4.8 3.8 D Chloride 108 H 107 Carbon Dioxide 25.3 27.7 BUN 30 H 31 H Creatinine 1.90 H 1.80 H Calcium 9.0 8.8 Cardiac Enzymes 12/29/18 12/30/18 Range/Units 23:21 07:21 Total Creatine Kinase 299 (39-308) U/L CK-MB (CK-2) 4.6 H (0.5-3.6) ng/mL Troponin I 0.07 H 0.07 H (0.02-0.05) ng/mL Liver Function 10/12/18 10/13/18 Range/Units 23:21 07:21 Total Bilirubin 0.6 0.6 (0.2-1.0) mg/dL AST 49 H 24 (15-37) U/L ALT 32 30 (12-78) U/L Alkaline Phosphatase 98 96 (45-117) U/L Albumin 3.5 3.6 (3.4-5.0) g/dL - Imaging Impressions Chest X-Ray 10/12/18 22:55 CONCLUSION: 1. Mild parenchymal consolidation of both bases. 2. Borderline compensated cardiomegaly unchanged. Caprini VTE Risk Assessment Caprini VTE Risk Assessment: Moderate/High Risk (score >= 2) Caprini Risk Assessment Model: Point Value = 1 Point Value = 2 Point Value = 3 Point Value = 5 Age 41-60 Minor surgery BMI > 25 kg/m2 Swollen legs Varicose veins or History of unexplained or recurrent spontaneous Oral contraceptives or hormone replacement Sepsis (< 1 month) Serious lung disease, including pneumonia (< 1 month) Abnormal pulmonary function Acute myocardial infarction Congestive heart failure (< 1 month) History of inflammatory bowel disease Medical patient at bed rest Age 61-74 Arthroscopic surgery Major open surgery (> 45 min) Laparoscopic surgery (> 45 min) Malignancy Confined to bed (> 72 hours) Immobilizing plaster cast Central venous access Age >= 75 History of VTE Family history of VTE Factor V Leiden Prothrombin [id number] Lupus anticoagulant Anticardiolipin antibodies Elevated serum homocysteine Heparin-induced thrombocytopenia Other congenital or acquired thrombophilia Stroke (< 1 month) Elective arthroplasty Hip, pelvis, or leg fracture Acute spinal cord injury (< 1 month) Prophylaxis Regimen: Total Risk Factor Score Risk Level Prophylaxis Regimen 0-1 Low Early ambulation 2 Moderate Order ONE of the following: *Sequential Compression Device (SCD) *Heparin 5000 units SQ BID 3-4 Higher Order ONE of the following medications: *Heparin 5000 units SQ TID *Enoxaparin/Lovenox 40 mg SQ daily (WT < 150 kg, CrCl > 30 mL/min) *Enoxaparin/Lovenox 30 mg SQ daily (WT < 150 kg, CrCl > 10-29 mL/min) *Enoxaparin/Lovenox 30 mg SQ BID (WT < 150 kg, CrCl > 30 mL/min) AND/OR *Sequential Compression Device (SCD) 5 or more Highest Order ONE of the following medications: *Heparin 5000 units SQ TID (Preferred with Epidurals) *Enoxaparin/Lovenox 40 mg SQ daily (WT < 150 kg, CrCl > 30 mL/min) *Enoxaparin/Lovenox 30 mg SQ daily (WT < 150 kg, CrCl > 10-29 mL/min) *Enoxaparin/Lovenox 30 mg SQ BID (WT < 150 kg, CrCl > 30 mL/min) AND *Sequential Compression Device (SCD) Assessment and Plan - Plan //Acute COPD exacerbation //Suspected community-acquired pneumonia //Suspected atypical pneumonia -Chest x-ray with bilateral infiltrates. BNP only mildly elevated -EKG with no significant changes from baseline. We will place on antibiotics with ceftriaxone, doxycycline. Patient's QT C is 504 on admission. -Troponin only mildly elevated at 0.07, and patient without chest pain. -Continue patient's pentoxifylline -Duo nebs, prednisone. //Chronic systolic CHF //Chronic cardiomyopathy -EF under 20%. Status post AICD BNP mildly elevated in the 100s on admission. -Monitor fluid status closely. Due to infiltrates, the need for D5 IV supplementation, will place patient on Lasix. -Continue Lasix, statin, blood pressure meds. Closely monitor fluid status. //Diabetes mellitus //Hypoglycemia on admission. -Could be secondary to decreased appetite due to infection We will treat infection as above Will be on D5 fluids. Continue to monitor sugars. //Kidney disease stage III. Creatinine at baseline. Avoid nephrotoxins Discussed Condition With: Patient, nurse H&P: Quality - VTE Deep Vein Thrombosis/Pulmonary Embolism Present on Admission: No
[2018-10-13] MEDS: predniSONE 20 MG Tablet PO SCH (16:33)
[2018-10-13] MEDS: hydrALAZINE 25 MG Tablet PO SCH (18:54)
[2018-10-13] MEDS: Pentoxifylline 400 MG Controlled Release Tablet PO SCH (18:54)
--- NOTE | 2018-10-13 23:04 | ECG ---
Date Performed: 10/13/2018 Time Performed: 13:06:54 PTAGE: 72 years EKG: Sinus rhythm WITH OCCASIONAL SUPRAVENTRICULAR PREMATURE COMPLEXES POSSIBLE LEFT ATRIAL ENLARGEMENT LEFT BUNDLE BR ANCH BLOCK ABNORMAL ECG PREVIOUS TRACING : 10/13/2018 02.34 No significant change from previous tracing noted. DOCTOR: Jose Jason Interpretating Date/Time 10/13/2018 23:03:35
--- NOTE | 2018-10-13 23:36 | ECG ---
Date Performed: 10/13/2018 Time Performed: 02:34:23 PTAGE: 72 years EKG: Sinus rhythm LEFT ATRIAL ENLARGEMENT LEFT BUNDLE BRANCH BLOCK ABNORMAL ECG PREVIOUS TRACING : 07/31/2018 03.12 Since the previous tracing, no significant change noted DOCTOR: Jorge Moreland Interpretating Date/Time 10/13/2018 23:34:19
[2018-10-14 06:56] LABS: Baso % (Auto) 0.6 % (0.0-2.0); Hematocrit 48.9 % (39.0-51.0); Hemoglobin 15.1 gm/dL (13.0-17.0); Lymph # (Auto) 0.9 th/mm3 (1.0-4.8); Mean Corpuscular Hemoglobin 28.6 pg (27.0-34.0); Mean Corpuscular Volume 92.8 fL (80.0-100.0); Mean Platelet Volume 10.3 fL (7.0-11.0); Mono # (Auto) 0.1 th/mm3 (0.0-0.9); Mono % (Auto) 2.2 % (0.0-8.0); Neut # (Auto) 4.6 th/mm3 (1.8-7.7); Neut % (Auto) 81.2 % (16.0-70.0); Platelet Count 107 th/mm3 (150-450); Red Blood Count 5.27 mil/mm3 (4.50-5.90); Red Cell Distribution Width 14.1 % (11.6-17.2); White Blood Count 5.6 th/mm3 (4.0-11.0)
[2018-10-14 06:58] LABS: Mean Corpuscular HGB Conc 30.8 % (32.0-36.0)
[2018-10-14 07:33] LABS: Albumin 3.3 g/dL (3.4-5.0); Calcium 8.6 mg/dL (8.5-10.1); Carbon Dioxide 23.1 meq/L (21.0-32.0); Magnesium 2.1 mg/dL (1.5-2.5); Potassium 4.7 meq/L (3.5-5.1); Total Protein 7.6 g/dL (6.4-8.2)
[2018-10-14] MEDS: Dextrose 5% in Water Inj 1,000 ML IV.CONT SCH (07:35)
[2018-10-14 07:37] LABS: Platelet Morphology Normal (Normal); RBC Morphology Normal (Normal)
[2018-10-14] MEDS ORDERED: Dextrose 50% in Water 50 ML Vial IV.PUSH PRN (08:21)
[2018-10-14] MEDS ORDERED: Insulin Detemir Inj 1,000 UNIT/10 ML Vial SQ SCH (09:00)
[2018-10-14] MEDS: predniSONE 20 MG Tablet PO SCH (09:41)
[2018-10-14] MEDS: Pentoxifylline 400 MG Controlled Release Tablet PO SCH ×3 (09:41→17:00)
[2018-10-14] MEDS: Senna/Docusate Sodium 8.6/50 MG Tablet PO SCH ×2 (09:41→20:19)
[2018-10-14] MEDS: Famotidine 20 MG Tablet PO SCH ×2 (09:41→20:17)
[2018-10-14] MEDS: Aspirin 325 MG Tablet PO SCH (09:41)
[2018-10-14] MEDS: Carvedilol 12.5 MG Tablet PO SCH ×2 (09:41→20:17)
[2018-10-14] MEDS: hydrALAZINE 25 MG Tablet PO SCH ×3 (09:41→17:00)
[2018-10-14] MEDS: Budesonide-Formoterol 80/4.5 MCG 6.9 GM Inhaler INH SCH ×2 (09:42→20:19)
[2018-10-14] MEDS: Insulin NovoLOG Aspart Correctional Sugar Inj SQ SCH ×3 (11:56→20:27)
[2018-10-14] MEDS ORDERED: Insulin Detemir Inj 1,000 UNIT/10 ML Vial SQ ONE (12:08)
[2018-10-14] MEDS ORDERED: predniSONE 20 MG Tablet PO SCH (12:09)
--- NOTE | 2018-10-14 12:12 | P.PNIM ---
Subjective Interval history: Patient says his breathing is much better today. Denies any chest pain. Reports shortness of breath much improved. Around vazquez. Physical Exam Vital signs: Vital Signs 10/13/18 14:02 10/13/18 15:37 10/13/18 20:00 Temperature 97.8 F 98.3 F Pulse Rate 83 86 80 Respiratory Rate 16 20 18 Blood Pressure 146/71 H 165/82 H Pulse Oximetry 93 L 93 L 10/13/18 20:40 10/14/18 00:00 10/14/18 01:25 Temperature 98.1 F Pulse Rate 83 88 82 Respiratory Rate 18 18 Blood Pressure 167/79 H Pulse Oximetry 95 93 L 10/14/18 04:00 10/14/18 04:04 10/14/18 08:00 Temperature 97.7 F 98.3 F Pulse Rate 86 86 100 H Respiratory Rate 18 16 18 Blood Pressure 154/71 H 162/79 H Pulse Oximetry 92 L 95 10/14/18 08:28 10/14/18 10:28 10/14/18 11:59 Temperature 97.1 F L Pulse Rate 92 H 95 H 94 H Respiratory Rate 20 19 18 Blood Pressure 173/91 H Pulse Oximetry 95 95 Intake & Output 10/13/18 10/14/18 10/14/18 18:59 06:59 18:59 Intake Total 400 / 400 500 / 500 1000 / 1000 Output Total 600 / 600 2150 / 2150 Balance -200 / -200 -1650 / -1650 1000 / 1000 Weight 88.4 kg Intake: IV 200 / 200 100 / 100 1000 / 1000 D5W Inj 1,000 ML @ 42 mls/hr IV 1000 / 1000 .CONT .[id number] [facility]ARTIK Rx#: [id number] Doxy 100 Inj 100 MG In NS Inj 100 / 100 100 / 100 100 ML @ 100 mls/hr IV.SIG Q12H K[facility]IK Rx#:[id number] Rocephin Inj 1,000 MG In NS Inj 100 / 100 100 ML @ 200 mls/hr IV.SIG Q24H KARTIK Rx#:[id number] Oral 200 / 200 400 / 400 Output: Urine 600 / 600 2150 / 2150 Narrative: GENERAL: Patient walking all. Appears comfortable. SKIN: Warm and dry. HEAD: Normocephalic. EYES: No scleral icterus. No injection or drainage. NECK: Supple, trachea midline. No JVD or lymphadenopathy. CARDIOVASCULAR: Regular rate and rhythm without murmurs, gallops, or rubs. RESPIRATORY: Breath sounds equal bilaterally. No accessory muscle use. GASTROINTESTINAL: Abdomen soft, non-tender, nondistended. MUSCULOSKELETAL: No cyanosis, or edema. BACK: Nontender without obvious deformity. No CVA tenderness. Results - Labs CBC & Chem 7: 10/14/18 05:17 10/14/18 05:17 Laboratory Results - last 24 hr 10/13/18 10/13/18 10/14/18 16:24 21:27 04:52 CBC w Diff WBC RBC Hgb Hct MCV MCH MCHC RDW Plt Count MPV Neut % (Auto) Lymph % (Auto) [place] % (Auto) Eos % (Auto) Baso % (Auto) Neut # (Auto) Lymph # (Auto) [place] # (Auto) Eos # (Auto) Baso # (Auto) WBC Differential Diff Scan Differential Comment Platelet Estimate Platelet Morphology RBC Morphology Sodium Potassium Chloride Carbon Dioxide Anion Gap BUN Creatinine Estimated GFR POC Glucose 290 H 383 H 354 H Random Glucose Calcium Phosphorus Magnesium Total Bilirubin Direct Bilirubin Indirect Bilirubin AST ALT Alkaline Phosphatase Total Protein Albumin 10/14/18 10/14/18 10/14/18 05:17 05:17 08:11 CBC w Diff Slide review pending WBC 5.6 RBC 5.27 Hgb 15.1 Hct 48.9 MCV 92.8 MCH 28.6 MCHC 30.8 L RDW 14.1 Plt Count 107 L MPV 10.3 Neut % (Auto) 81.2 H Lymph % (Auto) 16.0 [place] % (Auto) 2.2 Eos % (Auto) 0.0 Baso % (Auto) 0.6 Neut # (Auto) 4.6 Lymph # (Auto) 0.9 L [place] # (Auto) 0.1 Eos # (Auto) 0.0 Baso # (Auto) 0.0 WBC Differential . Diff Scan Auto diff confirmed Differential Comment . Platelet Estimate Low L Platelet Morphology Normal RBC Morphology Normal Sodium 135 L Potassium 4.7 D Chloride 102 Carbon Dioxide 23.1 Anion Gap 10 BUN 43 H Creatinine 2.30 H Estimated GFR 34 L POC Glucose 382 H Random Glucose 406 H D Calcium 8.6 Phosphorus 4.0 Magnesium 2.1 Total Bilirubin 0.4 Direct Bilirubin 0.2 Indirect Bilirubin 0.2 AST 21 ALT 25 Alkaline Phosphatase 98 Total Protein 7.6 Albumin 3.3 L 10/14/18 11:27 CBC w Diff WBC RBC Hgb Hct MCV MCH MCHC RDW Plt Count MPV Neut % (Auto) Lymph % (Auto) [place] % (Auto) Eos % (Auto) Baso % (Auto) Neut # (Auto) Lymph # (Auto) [place] # (Auto) Eos # (Auto) Baso # (Auto) WBC Differential Diff Scan Differential Comment Platelet Estimate Platelet Morphology RBC Morphology Sodium Potassium Chloride Carbon Dioxide Anion Gap BUN Creatinine Estimated GFR POC Glucose 435 H Random Glucose Calcium Phosphorus Magnesium Total Bilirubin Direct Bilirubin Indirect Bilirubin AST ALT Alkaline Phosphatase Total Protein Albumin Assessment and Plan - Plan //Acute COPD exacerbation //Suspected community-acquired pneumonia //Suspected atypical pneumonia -Chest x-ray with bilateral infiltrates. BNP only mildly elevated -EKG with no significant changes from baseline. We will place on antibiotics with ceftriaxone, doxycycline. Patient's QT C is 504 on admission. -Troponin only mildly elevated at 0.07, and patient without chest pain. -Continue patient's pentoxifylline -Duo nebs, prednisone. = Much improved. //Chronic systolic CHF //Chronic cardiomyopathy -EF under 20%. Status post AICD BNP mildly elevated in the 100s on admission. -Monitor fluid status closely. Due to infiltrates, the need for D5 IV supplementation, will place patient on Lasix. -Continue Lasix, statin, blood pressure meds. Closely monitor fluid status. = Discontinue Lasix due to acute kidney injury //Diabetes mellitus //Hypoglycemia on admission. -Could be secondary to decreased appetite due to infection We will treat infection as above Will be on D5 fluids. Continue to monitor sugars. = 10/04. Glucose in the 400s today. Will order single dose of IV insulin, increase sliding scale and long-acting insulin //Kidney disease stage III. Creatinine at baseline. Avoid nephrotoxins = Increase creatinine to 2.3 today. Will stop Lasix. Monitor Discussed Condition With: Patient, nurse. Discharge Planning: Hopefully discharge tomorrow if kidney function stable and glucose controlled.
[2018-10-14] MEDS: Insulin Detemir Inj 1,000 UNIT/10 ML Vial SQ SCH (20:19)
[2018-10-15 04:16] VITALS: BP 142/72; PULSE 86; RESP 18; TEMP 97.1
[2018-10-15 07:36] LABS: Baso # (Auto) 0.1 th/mm3 (0.0-0.2); Baso % (Auto) 0.5 % (0.0-2.0); Hematocrit 46.2 % (39.0-51.0); Hemoglobin 14.9 gm/dL (13.0-17.0); Lymph # (Auto) 1.5 th/mm3 (1.0-4.8); Lymph % (Auto) 11.6 % (9.0-44.0); Mean Corpuscular HGB Conc 32.2 % (32.0-36.0); Mean Corpuscular Hemoglobin 29.1 pg (27.0-34.0); Mean Corpuscular Volume 90.5 fL (80.0-100.0); Mean Platelet Volume 9.5 fL (7.0-11.0); Mono # (Auto) 0.7 th/mm3 (0.0-0.9); Mono % (Auto) 5.2 % (0.0-8.0); Neut # (Auto) 10.4 th/mm3 (1.8-7.7); Neut % (Auto) 82.7 % (16.0-70.0); Platelet Count 103 th/mm3 (150-450); Red Blood Count 5.11 mil/mm3 (4.50-5.90); Red Cell Distribution Width 13.6 % (11.6-17.2); White Blood Count 12.7 th/mm3 (4.0-11.0)
[2018-10-15 08:13] LABS: Albumin 3.4 g/dL (3.4-5.0); Calcium 9.3 mg/dL (8.5-10.1); Carbon Dioxide 22.9 meq/L (21.0-32.0); Magnesium 2.3 mg/dL (1.5-2.5); Phosphorus 4.5 mg/dL (2.5-4.9); Potassium 4.1 meq/L (3.5-5.1); Total Protein 7.4 g/dL (6.4-8.2)
[2018-10-15] MEDS: Aspirin 325 MG Tablet PO SCH (08:37)
[2018-10-15] MEDS: Carvedilol 12.5 MG Tablet PO SCH (08:37)
[2018-10-15] MEDS: Pentoxifylline 400 MG Controlled Release Tablet PO SCH (08:38)
[2018-10-15] MEDS: hydrALAZINE 25 MG Tablet PO SCH (08:38)
[2018-10-15] MEDS: Famotidine 20 MG Tablet PO SCH (08:38)
[2018-10-15] MEDS: Senna/Docusate Sodium 8.6/50 MG Tablet PO SCH (08:38)
[2018-10-15] MEDS: Insulin NovoLOG Aspart Correctional Sugar Inj SQ SCH (08:39)
[2018-10-15] MEDS: Budesonide-Formoterol 80/4.5 MCG 6.9 GM Inhaler INH SCH (08:40)
[2018-10-15] MEDS: Insulin Detemir Inj 1,000 UNIT/10 ML Vial SQ SCH (08:41)
[2018-10-15 09:02] VITALS: O2SAT 97
--- NOTE | 2018-10-15 10:21 | P.DS ---
Date of admission: 10/13/18 01:25 Primary care physician: Christofer Hernandez MD Brief History from admission: 72-year-old male with a history of coronary artery disease status post CABG, COPD, chronic smoking history, diabetes mellitus on insulin who presents with a one-week history of cough productive of brown sputum, shortness of breath, decreased appetite, unmeasured fevers. Patient notes that several days ago he was noted to have low blood sugars which resolved with dietary sugar. Patient noted to have hyperglycemia on admission here. Patient says he is feeling better since admission. Denies any lower extremity edema. He says his cough is worse lying down but denies any shortness of breath lying down. He says that his insulin was recently decreased, however denies any other recent changes in medication. DS: Medications - Discharge Medications Prescriptions: albuterol sulfate [Ventolin HFA] 2 puff INHALATION Q4-6H PRN 30 Days g PRN Reason: Shortness Of Breath budesonide-formoterol [Symbicort] 2 puff INHALATION BID 30 Days g carvedilol 25 mg PO BID 30 Days #60 tab doxycycline hyclate [Doxy-100] 100 mg IV Q12H 5 Days each furosemide [Lasix] 40 mg PO BID 30 Days #60 tab hydralazine 25 mg PO TID 30 Days #90 tab insulin aspart U-100 [Novolog U-100 Insulin aspart] 0 unit SUBCUT ACHS 30 Days ml insulin detemir U-100 [Levemir U-100 Insulin] 15 unit SUBCUT BID 30 Days #9 ml ipratropium-albuterol 1 amp NEB Q6HR NEB 30 Days ml DS: Summary Hospital Course: //Acute COPD exacerbation //Suspected community-acquired pneumonia //Suspected atypical pneumonia -Chest x-ray with bilateral infiltrates. BNP only mildly elevated -EKG with no significant changes from baseline. We will place on antibiotics with ceftriaxone, doxycycline. Patient's QT C is 504 on admission. -Troponin only mildly elevated at 0.07, and patient without chest pain. -Continue patient's pentoxifylline -Duo nebs, prednisone. = Much improved. -Discharge home with low-dose prednisone taper. //Chronic systolic CHF //Chronic cardiomyopathy -EF under 20%. Status post AICD BNP mildly elevated in the 100s on admission. -Monitor fluid status closely. Due to infiltrates, the need for D5 IV supplementation, will place patient on Lasix. -Continue Lasix, statin, blood pressure meds. Closely monitor fluid status. = Discontinue Lasix due to acute kidney injury = We will restart Lasix at home. Follow-up with primary care as outpatient. //Diabetes mellitus //Hypoglycemia on admission. -Could be secondary to decreased appetite due to infection We will treat infection as above Will be on D5 fluids. Continue to monitor sugars. = 10/04. Glucose in the 400s today. Will order single dose of IV insulin, increase sliding scale and long-acting insulin = 10/15. Patient likely using less insulin due to progressively worsening kidney function. Will decrease dose of home insulin and follow-up with primary care. Place on sliding scale. //Kidney disease stage III. Creatinine at baseline. Avoid nephrotoxins = Increase creatinine to 2.3 today. Will stop Lasix. Monitor Discharge Planning: Discharge home today - Time Spent with Patient Total time spent providing and/or coordinating discharge services: Greater than 30 minutes - Quality: VTE Deep Vein Thrombosis/Pulmonary Embolism Present on Admission: No Exam Vital signs: Vital Signs 10/14/18 10:28 10/14/18 11:59 10/14/18 12:00 Temperature 97.1 F L Pulse Rate 95 H 94 H 88 Respiratory Rate 19 18 Blood Pressure 173/91 H Pulse Oximetry 95 10/14/18 14:37 10/14/18 16:00 10/14/18 20:00 Temperature 97.5 F L 97.3 F L Pulse Rate 95 H 90 84 Respiratory Rate 19 18 18 Blood Pressure 166/79 H 159/76 H Pulse Oximetry 95 94 L 10/14/18 20:14 10/14/18 21:07 10/15/18 00:15 Temperature Pulse Rate 77 85 74 Respiratory Rate 16 Blood Pressure Pulse Oximetry 93 L 10/15/18 03:19 10/15/18 04:00 10/15/18 09:00 Temperature 97.1 F L Pulse Rate 90 86 Respiratory Rate 16 18 Blood Pressure 142/72 H Pulse Oximetry 96 97 Intake & Output 10/14/18 10/15/18 10/15/18 18:59 06:59 18:59 Intake Total 1100 / 1100 1680 / 1680 Output Total 1400 / 1400 Balance 1100 / 1100 280 / 280 Weight 88.7 kg Intake: IV 1100 / 1100 200 / 200 D5W Inj 1,000 ML @ 42 mls/hr IV 1000 / 1000 .CONT .[id number] [facility]ARTIK Rx#: [id number] Doxy 100 Inj 100 MG In NS Inj 200 / 200 100 ML @ 100 mls/hr IV.SIG Q12H [facility]ARTIK Rx#:[id number] Rocephin Inj 1,000 MG In NS Inj 100 / 100 100 ML @ 200 mls/hr IV.SIG Q24H KARTIK Rx#:[id number] Oral Supplement 1480 / 1480 Output: Urine 1400 / 1400 Other: # Voids 6 Date of Last Bowel Movement 10/14/18 10/14/18 # Bowel Movements 1 Results Procedures completed during hospitalization: No invasive procedures. Labs on day of discharge: Labs from last 24 hours 10/15/18 10/15/18 10/15/18 07:04 06:05 06:05 CBC w Diff Slide review pending WBC 12.7 H RBC 5.11 Hgb 14.9 Hct 46.2 MCV 90.5 MCH 29.1 MCHC 32.2 RDW 13.6 Plt Count 103 L MPV 9.5 Neut % (Auto) 82.7 H Lymph % (Auto) 11.6 [place] % (Auto) 5.2 Eos % (Auto) 0.0 Baso % (Auto) 0.5 Neut # (Auto) 10.4 H Lymph # (Auto) 1.5 [place] # (Auto) 0.7 Eos # (Auto) 0.0 Baso # (Auto) 0.1 WBC Differential . Diff Scan Auto diff confirmed Differential Comment . Sodium 142 Potassium 4.1 Chloride 110 H D Carbon Dioxide 22.9 Anion Gap 9 BUN 44 H Creatinine 2.00 H Estimated GFR 40 L POC Glucose 129 H Random Glucose 126 H D Calcium 9.3 Phosphorus 4.5 Magnesium 2.3 Total Bilirubin 0.4 Direct Bilirubin 0.1 Indirect Bilirubin 0.3 AST 19 ALT 23 Alkaline Phosphatase 87 Total Protein 7.4 Albumin 3.4 10/14/18 10/14/18 10/14/18 20:23 16:25 11:27 CBC w Diff WBC RBC Hgb Hct MCV MCH MCHC RDW Plt Count MPV Neut % (Auto) Lymph % (Auto) [place] % (Auto) Eos % (Auto) Baso % (Auto) Neut # (Auto) Lymph # (Auto) [place] # (Auto) Eos # (Auto) Baso # (Auto) WBC Differential Diff Scan Differential Comment Sodium Potassium Chloride Carbon Dioxide Anion Gap BUN Creatinine Estimated GFR POC Glucose 178 H 363 H 435 H Random Glucose Calcium Phosphorus Magnesium Total Bilirubin Direct Bilirubin Indirect Bilirubin AST ALT Alkaline Phosphatase Total Protein Albumin - Impressions ITS Impressions Chest X-Ray 10/12/18 22:55 CONCLUSION: 1. Mild parenchymal consolidation of both bases. 2. Borderline compensated cardiomegaly unchanged. Discharge Plan - Discharge Order Discharge Orders: Discharge Order (Routine); Ordered 10/15/18 Ordered By: Girish Jeffers - Discharge Details Anticipated Discharge Date: 10/15/18 - Physicians Team Primary Care Provider: Christofer Hernandez V Attending Provider: Girish Jeffers Other Providers: Gabi Ashley
== END 2018-10-15 11:20 | disposition home or self-care (01) ==
LOC: PHEDA 21:53 → PHED 21:53 → PH3 10-13 02:43
PROVIDERS: ADMIT Internal Medicine; ATTEND Internal Medicine
CPT/HCPCS: 71010; 71045; 80053; 80069; 80076; 82550; 82552; 82948; 82962; 83520; 83735; 83880; 84484; 85025; 90775; 93005; 94640; 94664; 94665; 96365; 96366; 96367; 96368; 96372; 96375; 96376; 99285; G0378; J0696; J1815; J1940; J7070; J7506; J7512